=== PATIENT | female | born 1990 | race Caucasian/White ===

== ENCOUNTER → 2017-12-16 10:00 | Outpatient (CLI) | payer OTHER, MEDICAID, SELFPAY ==
[2017-12-16 10:51] LABS: Color, Urine Straw (Yellow); Glucose, Dipstick Normal (Normal); Ketone-Dipstick Negative (Negative); Leukocyte Esterase-Dipstick 25 /ul (Negative); Nitrite-Dipstick Negative (Negative); Occult Blood-Urine Negative /ul (Negative); Protein-Dipstick Negative (Negative); Specific Gravity, Urine 1.015 (1.002-1.030); Urine Bilirubin Dipstick Negative (Negative); Urine Clarity Clear (Clear); Urine Urobilinogen Normal (Normal)
[2017-12-16 10:52] LABS: Absolute Lymphocyte Count 1.59 X10^3/ul (0.83-4.51); Basophil# 0.01 X10^3/uL; Basophil% 0.1 % (0-1); Eosinophil# 0.08 X10^3/uL; Eosinophils% 0.7 % (0-5); Hematocrit 36.1 % (37-47); Hemoglobin 12.1 g/dl (12.0-15.0); Lymphocyte # 1.59 X10^3/ul (4.0); Lymphocyte % 13.9 % (19-41); Mean Corp Hgb Conc 33.5 g/gl (32-36); Mean Corpuscular Volume 89.6 fL (81-99); Mean Platelet Vol. 10.2 fl (6.2-12.0); Monocyte# 0.73 X10^3/uL; Monocyte% 6.4 % (0-10); Neutrophil # 9.01 X10^3/uL (2.7-7.7); Neutrophil % 78.8 % (47-70); Platelet Count 271 K/mm3 (150-450); RBC Distribution Width SD 42.4 fl (35.1-43.9); Red Blood Count 4.03 M/mm3 (4.2-5.4); White Blood Count 11.4 K/mm3 (4.4-11.0)
[2017-12-16 10:55] LABS: POSITIVE COUNT NO; POSITIVE DIFFERENTIAL NO; POSITIVE MORPHOLOGY NO
[2017-12-16 10:57] LABS: COTININE Drug Screen Negative (<200 ng/mL)
[2017-12-16 11:06] LABS: Amphetamine Urine VISTA NEGATIVE (<1000 ng/mL); Barbiturate Urine VISTA NEGATIVE (< 200 ng/mL); Benzodiazepine Urine VISTA NEGATIVE (< 200 ng/mL); Cocaine Urine VISTA NEGATIVE (< 300 ng/mL); Ecstacy Urine VISTA NEGATIVE (< 500 ng/mL); Methadone Urine VISTA NEGATIVE (< 300 ng/mL); PCP Urine VISTA NEGATIVE (< 25 ng/mL); THC Urine VISTA NEGATIVE (< 50 ng/mL); Vista UDS pH Range 6
[2017-12-16 11:14] LABS: Thyroid Stim Hormone (TSH) 1.14 uIU/mL (0.358-3.74)
[2017-12-17 11:23] LABS: HIV - WCH Non-Reactive (Nonreactive); Rubella IgG 233.2 IU/mL
[2017-12-17 12:55] LABS: HEPATITIS B SURFACE AG Negative (Negative); Hep C Antibodies <0.1 s/co ratio (0.0-0.9)
[2017-12-19 04:38] LABS: Prenatal RPR NONREACTIVE (NONREACTIVE)
== END ==
PROVIDERS: Visit Provider Obstetrics & Gynecology
DX: Z34.81 Encounter for supervision of other normal pregnancy, first trimester (principal); Z3A.00 Weeks of gestation of pregnancy not specified
CPT/HCPCS: 36415; 80307; 81002; 84443; 85025; 86703; 86762; 86803; 87340

== ENCOUNTER → 2018-04-14 09:13 | Outpatient (CLI) | payer MEDICAID, SELFPAY ==
[2018-04-14 10:55] LABS: Hematocrit 30.9 % (37-47); Hemoglobin 9.9 g/dl (12.0-15.0); Mean Corpuscular Hgb 28.9 pg (27.0-32.0); Mean Corpuscular Volume 90.1 fL (81-99); Mean Platelet Vol. 10.1 fl (6.2-12.0); Platelet Count 273 K/mm3 (150-450); RBC Distribution Width CV 13.3 % (11.6-14.6); RBC Distribution Width SD 42.7 fl (35.1-43.9); Red Blood Count 3.43 M/mm3 (4.2-5.4); White Blood Count 8.8 K/mm3 (4.4-11.0)
[2018-04-14 10:56] LABS: Scan Indicated on CBC? Y/N NO
[2018-04-14 11:01] LABS: Glucose Challenge Gest 1H 50g 151 mg/dL (70-140)
== END ==
PROVIDERS: Visit Provider Obstetrics & Gynecology
DX: Z34.82 Encounter for supervision of other normal pregnancy, second trimester (principal)
CPT/HCPCS: 36415; 82950; 85027

== ENCOUNTER → 2018-04-24 06:45 | Outpatient (CLI) | payer MEDICAID, SELFPAY ==
[2018-04-24 08:10] LABS: Glucose GTT-Gestation. Fasting 70 mg/dL (<105)
[2018-04-24 09:29] LABS: Glucose GTT-Gestational 1 Hr 180 mg/dL (<190)
[2018-04-24 09:45] LABS: Glucose GTT-Gestational 2 Hr 128 mg/dL (<165)
[2018-04-24 10:52] LABS: Glucose GTT-Gestational 3 Hr 132 L (<145)
== END ==
PROVIDERS: Family Provider Family Medicine; PCP Family Medicine; Visit Provider Obstetrics & Gynecology
DX: O24.912 Unspecified diabetes mellitus in pregnancy, second trimester (principal); Z3A.00 Weeks of gestation of pregnancy not specified
CPT/HCPCS: 36415; 82951; 82952

== ENCOUNTER → 2018-05-14 14:46 | Outpatient (CLI) | payer MEDICAID, SELFPAY ==
--- NOTE | 2018-05-14 14:50 | VDLE_ITS ---
Reason For Study: LEG PAIN RIGHT LEFT GSV is normal. GSV is normal. CFV is compressible, spontaneous, phasic, CFV is compressible, spontaneous, phasic, competent and demonstrates normal competent, and demonstrates normal augmentation. augmentation. FV is compressible, spontaneous, phasic, FV is compressible, spontaneous, phasic, competent and demonstrates normal competent and demonstrates normal augmentation. augmentation. POP V is compressible, spontaneous, phasic, POP V is compressible, spontaneous, phasic, competent and demonstrates normal competent and demonstrates normal augmentation. augmentation. T/P Trunk is compressible. T/P Trunk is compressible. PTV is compressible. PTV is compressible. RT PerV is compressible. LT PerV is compressible. Procedure Exam performed in department. A preliminary report was called and/or faxed to Dr. Cabrera. Interpretation Summary Deep veins of the lower extremities are bilaterally patent and compressible segmentally. There is no evidence of deep vein thrombosis on either side. Valvular competence appears intact within the proximal deep venous systems bilaterally. The greater saphenous veins appear bilaterally patent and compressible segmentally. Ordering Physician: Marciano Cabrera Referring Physician: Marciano Cabrera Performed By: Cheryle Cook RVT
== END ==
PROVIDERS: Family Provider Family Medicine; PCP Family Medicine; Visit Provider Obstetrics & Gynecology
DX: O26.899 Other specified pregnancy related conditions, unspecified trimester (principal); M79.606 Pain in leg, unspecified
CPT/HCPCS: 93970

== ENCOUNTER 2018-05-31 21:04 | Outpatient (CLI) | payer MEDICAID, SELFPAY ==
[2018-05-31 22:18] LABS: Color, Urine Yellow (Yellow); Glucose, Dipstick Normal (Normal); Ketone-Dipstick Negative (Negative); Leukocyte Esterase-Dipstick 500 /ul (Negative); Mucous, Urine 0 SEEN /hpf (<or=2+); Nitrite-Dipstick Negative (Negative); Occult Blood-Urine Negative /ul (Negative); Protein-Dipstick 15 mg/dl (Negative); Red Blood Cells-Urine 0 SEEN /hpf (0-5); Urine Bilirubin Dipstick Negative (Negative); Urine Clarity Sl. Cloudy (Clear); Urine Urobilinogen 1 mg/dl (Normal)
[2018-05-31] MEDS: 0.9% Normal Saline 1,000 ML 999 ML IV (22:25)
[2018-05-31 22:27] LABS: Bacteria 3+ /hpf (None Seen); Squamous Epithelial Cells - UA 10-25 SEEN /hpf (5-10); White Blood Cells 10-25 SEEN /hpf (0-5)
[2018-05-31] MEDS: Terbutaline 1 MG/ML Vial 0.25 MG SC (22:50)
[2018-05-31 22:55] VITALS: BMI 29.0
[2018-06-01] MEDS: Terbutaline 1 MG/ML Vial 0.25 MG SC (00:45)
--- NOTE | 2018-06-01 07:24 | OB.TRI.NOTE ---
- Problem List (1) 34 weeks gestation of Status: Acute (2) labor in third trimester Status: Acute Qualifiers: labor delivery status: without delivery Qualified Code(s): O60.03 - labor without delivery, third trimester History of Present Illness Date of Service: 06/01/18 Was patient seen by the physician?: Yes Reason For Visit: R/O LABOR Date of Service: 06/01/18 Final KELLY: 07/09/18 Final KELLY Source: US <20 weeks Gestational age: 34 Weeks and 4 Days History of Present Illness: 28yo [id number] 34 4/7wga with c/o contractions. No leaking of fluid or vaginal bleeding. Fetus active. Denies fever, chills, dysuria, back pain, hematuria. Allergies amoxicillin trihydrate [From Augmentin] Allergy (Verified 05/31/18 22:53) Rash clarithromycin [From Biaxin] Allergy (Verified 05/31/18 22:53) Rash potassium clavulanate [From Augmentin] Allergy (Verified 05/31/18 22:53) Rash - Pertinent Past Medical History Medical History: Past Medical History (Last Updated 06/01/18 @ 08:27 by More Lynn MD) Depression Physical Exam Vitals: avss General: Alert, Oriented x3, Cooperative, No apparent distress HEENT: Atraumatic, Normocephalic Lungs: Normal air movement Abdomen: Soft, Non Tender, Non-Distended, Gravid Neurological: Neuro grossly intact 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 -dfdx contractions, cystitis -s/p terbutaline x 2 with continued contractions -RN exam closed -->01/18/-5 per my exam -U/A suggests UTI vs. contamination - will treat empirically as this may be the cause of her contractions. Rx Macrobid. -Will give betamethasone for FLM -Plan repeat exam approximately 12 noon, if unchanged then will d/c home.
[2018-06-01] MEDS: Nitrofurantoin Macrocrystals 100 MG Capsule PO (07:44)
[2018-06-01] MEDS: Betamethasone/Betamethasone 30 MG/5 ML Vial 12 MG IM (07:44)
--- NOTE | 2018-06-01 08:32 | OB.TRI.HP_ITS ---
- Problem List (1) 34 weeks gestation of Status: Acute (2) labor in third trimester Status: Acute Qualifiers: labor delivery status: without delivery Qualified Code(s): O60.03 - labor without delivery, third trimester History of Present Illness Date of Service: 06/01/18 Was patient seen by the physician?: Yes Reason For Visit: R/O LABOR Date of Service: 06/01/18 Final KELLY: 07/09/18 Final KELLY Source: US <20 weeks Gestational age: 34 Weeks and 4 Days History of Present Illness: 28yo [id number] 34 4/7wga with c/o contractions. No leaking of fluid or vaginal bleeding. Fetus active. Denies fever, chills, dysuria, back pain, hematuria. Allergies amoxicillin trihydrate [From Augmentin] Allergy (Verified 05/31/18 22:53) Rash clarithromycin [From Biaxin] Allergy (Verified 05/31/18 22:53) Rash potassium clavulanate [From Augmentin] Allergy (Verified 05/31/18 22:53) Rash - Pertinent Past Medical History Medical History: Past Medical History (Last Updated 06/01/18 @ 08:27 by More Lynn MD) Depression Physical Exam Vitals: avss General: Alert, Oriented x3, Cooperative, No apparent distress HEENT: Atraumatic, Normocephalic Lungs: Normal air movement Abdomen: Soft, Non Tender, Non-Distended, Gravid Neurological: Neuro grossly intact 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 -dfdx contractions, cystitis -s/p terbutaline x 2 with continued contractions -RN exam closed -->01/18/-5 per my exam -U/A suggests UTI vs. contamination - will treat empirically as this may be the cause of her contractions. Rx Macrobid. -Will give betamethasone for FLM -Plan repeat exam approximately 12 noon, if unchanged then will d/c home.
[2018-06-01] MEDS: Mag Hydrox/Al Hydrox/Simeth 30 ML UDC PO (13:08)
--- NOTE | 2018-06-01 14:00 | PCM.PN.BLA ---
Progress Note PROGRESS NOTE Repeat exam by RN unchanged from prior and FHR Cat I. Will d/c home. Antibiotics for possible UTI e-prescribed. Return for betamethasone dose #2 tomorrow.
== END 2018-06-01 13:30 | disposition home or self-care (01) ==
LOC: WPOUT 21:50 → WP 21:50
PROVIDERS: Family Provider Family Medicine; PCP Family Medicine; Visit Provider Obstetrics & Gynecology
DX: O60.03 Preterm labor without delivery, third trimester (principal); O99.343 Other mental disorders complicating pregnancy, third trimester; F32.9 Major depressive disorder, single episode, unspecified; Z79.899 Other long term (current) drug therapy; Z3A.34 34 weeks gestation of pregnancy
CPT/HCPCS: 59025; 59050; 81001; 87086; 87088; 96372; 99218; J7030; A4216; G0378; J0702

== ENCOUNTER 2018-06-02 07:38 | Outpatient (CLI) | payer MEDICAID, SELFPAY ==
[2018-06-02 08:07] VITALS: BMI 29.4
[2018-06-02] MEDS: Betamethasone/Betamethasone 30 MG/5 ML Vial 12 MG IM (08:07)
--- NOTE | 2018-06-03 08:51 | OB.TRI.PN ---
Progress Notes Date of Service: 06/02/18 Progress Note: 28yo at 34 5/7wga presents for nurse visit for second dose of betamethasone for recent labor. Last dose given morning of 06/01/18.
== END 2018-06-02 08:13 | disposition home or self-care (01) ==
LOC: WPOUT 07:43 → WP 07:44
PROVIDERS: Family Provider Family Medicine; PCP Family Medicine; Visit Provider Obstetrics & Gynecology
DX: O60.03 Preterm labor without delivery, third trimester (principal); Z3A.34 34 weeks gestation of pregnancy
CPT/HCPCS: 96372; 99218; G0378; J0702

== ENCOUNTER 2018-06-05 12:05 | Outpatient (CLI) | payer MEDICAID, SELFPAY ==
[2018-06-05 12:33] VITALS: BMI 29.4
--- NOTE | 2018-06-06 06:41 | OB.TRI.NOTE ---
History of Present Illness Date of Service: 06/05/18 Was patient seen by the physician?: No Reason For Visit: R/O LABOR Date of Service: 06/05/18 Final KELLY: 07/09/18 Final KELLY Source: US <20 weeks Gestational age: 35 Weeks and 1 Days Allergies amoxicillin trihydrate [From Augmentin] Allergy (Verified 05/31/18 22:53) Rash clarithromycin [From Biaxin] Allergy (Verified 05/31/18 22:53) Rash potassium clavulanate [From Augmentin] Allergy (Verified 05/31/18 22:53) Rash - Pertinent Past Medical History Medical History: Past Medical History (Last Updated 06/01/18 @ 08:27 by More Lynn MD) Depression Physical Exam Cervix Dilation (cm): 2 Station: -2 Effacement (%): 60 NST - FHR Rate Baby A Baseline: 120-130s with accels to 160-170s Variability:: Moderate Accelerations:: 15 x 15 Decelerations:: None, Early NST Reactive:: Yes, Appropriate for gestational age FHR Category:: Category I Uterine Activity:: irregular UCs Impression/Plan 35 wk False labor Reactive NST Home. Keep next appt in ofc as planned.
== END 2018-06-05 14:00 | disposition home or self-care (01) ==
LOC: WPOUT 12:11 → WP 12:12
PROVIDERS: Family Provider Family Medicine; PCP Family Medicine; Visit Provider Obstetrics & Gynecology
DX: O47.03 False labor before 37 completed weeks of gestation, third trimester (principal); O99.343 Other mental disorders complicating pregnancy, third trimester; F32.9 Major depressive disorder, single episode, unspecified; Z79.899 Other long term (current) drug therapy; Z3A.35 35 weeks gestation of pregnancy
CPT/HCPCS: 59025; 59050; 99218; G0378

== ENCOUNTER → 2018-06-10 11:24 | Outpatient (CLI) | payer MEDICAID, SELFPAY ==
[2018-06-10 17:14] LABS: Group B Strep DNA By PCR Negative (Negative); Internal Control PASS; Probe Check PASS; Specimen Processing Control PASS
== END ==
PROVIDERS: Visit Provider Obstetrics & Gynecology
DX: Z36.85 Encounter for antenatal screening for Streptococcus B (principal)
CPT/HCPCS: 87081; 87653

== ENCOUNTER 2018-06-18 01:25 | Outpatient (CLI) | payer MEDICAID, SELFPAY ==
[2018-06-18 02:35] VITALS: BMI 30.1
[2018-06-18] MEDS: Lactated Ringers 1,000 ML 500 ML IV (05:00)
--- NOTE | 2018-06-18 07:02 | OB.TRI.NOTE ---
History of Present Illness Date of Service: 06/18/18 Was patient seen by the physician?: Yes Reason For Visit: R/O LABOR Date of Service: 06/18/18 Final KELLY: 07/09/18 Final KELLY Source: US <20 weeks Gestational age: 37 Weeks and 0 Days Allergies amoxicillin trihydrate [From Augmentin] Allergy (Verified 05/31/18 22:53) Rash clarithromycin [From Biaxin] Allergy (Verified 05/31/18 22:53) Rash potassium clavulanate [From Augmentin] Allergy (Verified 05/31/18 22:53) Rash - Pertinent Past Medical History Medical History: Past Medical History (Last Updated 06/01/18 @ 08:27 by More Lynn MD) Depression Review of Systems Constitutional: Denies: Anorexia, Chills, Fever Respiratory: Denies: Shortness of Breath Gastrointestinal: Denies: Abdominal Pain, Diarrhea, Nausea, Vomiting Genitourinary: Denies: Dysuria Gynecological: Denies: Vaginal bleeding Physical Exam General: Alert, Oriented x3, Cooperative, No apparent distress Cardiovascular: Regular rate, Regular Rhythm Lungs: Clear to auscultation, Normal air movement Abdomen: Soft, Non Tender, Non-Distended, Gravid, Appropriate for Gestational Age, - - some mild palpable contractions Extremities:: No edema Neurological: Neuro grossly intact Estimated gestational size: Appropriate for gestational size Presentation: Cephalic Cervix Dilation (cm): 3 Station: -3 Effacement (%): 50 NST - FHR Rate Baby A Variability:: Moderate Accelerations:: 15 x 15 NST Reactive:: Yes, Appropriate for gestational age FHR Category:: Category I Uterine Activity:: irregular not strongly Impression/Plan Some irregular contractions overnight after intercourse. No change in cervical exam today or over the past 3 weeks. Not in active labor. Observed over 4+ hours.
== END 2018-06-18 07:00 | disposition home or self-care (01) ==
LOC: WPOUT 02:02 → WP 06-19 09:29
PROVIDERS: Family Provider Family Medicine; PCP Family Medicine; Visit Provider Obstetrics & Gynecology
DX: O62.8 Other abnormalities of forces of labor (principal); O99.343 Other mental disorders complicating pregnancy, third trimester; F32.9 Major depressive disorder, single episode, unspecified; Z3A.37 37 weeks gestation of pregnancy
CPT/HCPCS: 96360; 96361; 59025; 59050; 99218; G0378

== ENCOUNTER → 2018-06-23 14:37 | Outpatient (CLI) | payer MEDICAID, SELFPAY ==
[2018-06-23 15:15] LABS: ROM Internal Control Test YES-OK TO RESULT pt. (Internal QC); ROM Patient Test Negative (Negative)
== END ==
PROVIDERS: Visit Provider Obstetrics & Gynecology
DX: Z34.83 Encounter for supervision of other normal pregnancy, third trimester (principal)
CPT/HCPCS: 84112

== ENCOUNTER 2018-07-01 19:00 | Outpatient (CLI) | payer MEDICAID, SELFPAY ==
[2018-07-01 20:46] VITALS: BMI 29.0
--- NOTE | 2018-07-02 07:12 | OB.TRI.NOTE ---
History of Present Illness Date of Service: 07/01/18 Was patient seen by the physician?: Yes Reason For Visit: R/O LABOR Date of Service: 07/01/18 Final KELLY: 07/08/18 Final KELLY Source: US <20 weeks Gestational age: 39 Weeks and 1 Days History of Present Illness: Complaints of regular uterine contractions, denies signs of SROM Allergies amoxicillin trihydrate [From Augmentin] Allergy (Verified 07/01/18 20:47) Rash clarithromycin [From Biaxin] Allergy (Verified 07/01/18 20:47) Rash potassium clavulanate [From Augmentin] Allergy (Verified 07/01/18 20:47) Rash - Pertinent Past Medical History Medical History: Past Medical History (Last Updated 06/01/18 @ 08:27 by More Lynn MD) Depression Review of Systems Constitutional: Denies: Fever Cardiovascular: Denies: Chest Pain, Chest Pressure, Chest Tightness, Edema Respiratory: Denies: Cough, Shortness of Breath Physical Exam General: Alert, Oriented x3, Cooperative, No apparent distress Cardiovascular: Regular rate, Regular Rhythm Lungs: Clear to auscultation, Normal air movement Abdomen: Soft, Non Tender, Non-Distended, Gravid, Appropriate for Gestational Age Extremities:: No edema Neurological: Neuro grossly intact 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 Reassuring heart rate tracing. No signs of SROM.
--- NOTE | 2018-07-02 07:15 | OB.TRI.HP_ITS ---
History of Present Illness Date of Service: 07/01/18 Was patient seen by the physician?: Yes Reason For Visit: R/O LABOR Date of Service: 07/01/18 Final KELLY: 07/08/18 Final KELLY Source: US <20 weeks Gestational age: 39 Weeks and 1 Days History of Present Illness: Complaints of regular uterine contractions, denies signs of SROM Allergies amoxicillin trihydrate [From Augmentin] Allergy (Verified 07/01/18 20:47) Rash clarithromycin [From Biaxin] Allergy (Verified 07/01/18 20:47) Rash potassium clavulanate [From Augmentin] Allergy (Verified 07/01/18 20:47) Rash - Pertinent Past Medical History Medical History: Past Medical History (Last Updated 06/01/18 @ 08:27 by More Lynn MD) Depression Review of Systems Constitutional: Denies: Fever Cardiovascular: Denies: Chest Pain, Chest Pressure, Chest Tightness, Edema Respiratory: Denies: Cough, Shortness of Breath Physical Exam General: Alert, Oriented x3, Cooperative, No apparent distress Cardiovascular: Regular rate, Regular Rhythm Lungs: Clear to auscultation, Normal air movement Abdomen: Soft, Non Tender, Non-Distended, Gravid, Appropriate for Gestational Age Extremities:: No edema Neurological: Neuro grossly intact 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 Reassuring heart rate tracing. No signs of SROM.
== END 2018-07-02 | disposition home or self-care (01) ==
LOC: WPOUT 20:27 → WP 20:28
PROVIDERS: Family Provider Family Medicine; PCP Family Medicine; Visit Provider Obstetrics & Gynecology
DX: O99.343 Other mental disorders complicating pregnancy, third trimester (principal); F32.9 Major depressive disorder, single episode, unspecified; Z3A.39 39 weeks gestation of pregnancy
CPT/HCPCS: 59025; 59050; 99218; G0378

== ENCOUNTER 2018-07-07 06:45 | Inpatient (IN) | payer MEDICAID, SELFPAY ==
[2018-07-07] MEDS: Lactated Ringers 1,000 ML 50 ML IV ×2 (07:45→09:58)
[2018-07-07 08:09] VITALS: BMI 29.6
[2018-07-07] MEDS: Oxytocin 30 units/NS 500 ml 30 UNITS/500 ML IV.SOLN IV (08:10)
[2018-07-07 08:13] LABS: Hematocrit 28.8 % (37-47); Hemoglobin 8.7 g/dl (12.0-15.0); Mean Corp Hgb Conc 30.2 g/gl (32-36); Mean Corpuscular Volume 76.2 fL (81-99); Mean Platelet Vol. 9.8 fl (6.2-12.0); Platelet Count 265 K/mm3 (150-450); RBC Distribution Width CV 15.5 % (11.6-14.6); RBC Distribution Width SD 43.3 fl (35.1-43.9); Red Blood Count 3.78 M/mm3 (4.2-5.4); Scan Indicated on CBC? Y/N NO; White Blood Count 11.9 K/mm3 (4.4-11.0)
[2018-07-07] MEDS: fentaNYL-bupivacaine (epidural) 100 ML BAG EPIDURAL (09:55)
[2018-07-07] MEDS: Oxytocin 30 units/NS 500 ml 30 UNITS/500 ML IV.SOLN 334 UNITS IV (13:22)
--- NOTE | 2018-07-07 13:32 | PCM.OB.VAG ---
Vaginal Delivery Maternal Presentation: Elective Induction 39w6d ega admitted for induction of labor. Pitocin induction resulted in uncomplicated vaginal delivery. Placenta delivered intact. Intact vagina, cervix, perineum. Method of Induction: Pitocin Amniotic Membrane Rupture Type: Artificial Rupture of Membrane time: 757 Amniotic Fluid Description: Clear Final KELLY: 07/08/18 Final KELLY Source: US <20 weeks Gestational age: 39 Weeks and 6 Days Date of Procedure: 07/07/18 Pre-Operative Diagnosis: labor Post-Operative Diagnosis: same Surgery/ Procedure Performed: Spontaneous Vaginal Delivery Anesthesiologist: Rohan Alvarez Type of Anesthesia: Epidural Description of Procedure: see above Presentation: Vertex Placental Delivery Description: Spontaneous Placenta Disposition: [facility] Percentage of Placenta Abruption: 0 Cord Vessel Description: 3 Vessels Nuchal Cord Compression: Without compression Cord Entanglement: None Drain: Nova to straight drain Estimated Blood Loss: 200cc Infant A gender: Male (1 minute): 8 (5 minute): 8 Episiotomy Description: None Laceration: None Medications given after delivery: IV Pitocin Complications: None
[2018-07-07] MEDS: Oxytocin 30 units/NS 500 ml 30 UNITS/500 ML IV.SOLN 167 UNITS IV (13:54)
[2018-07-07 17:30] VITALS: BP 106/55; PULSE 96; RESP 16; TEMP 36.8
[2018-07-07] MEDS: Ibuprofen 600 MG Tablet PO (19:45)
[2018-07-07 19:52] VITALS: BP 98/52; PULSE 92; RESP 16; TEMP 37.1; O2SAT 97
[2018-07-08] VITALS: BP 104/52; PULSE 82; RESP 16; TEMP 37.1; O2SAT 98
[2018-07-08 04:20] VITALS: BP 105/51; PULSE 74; RESP 16; TEMP 36.7; O2SAT 97
[2018-07-08 06:07] LABS: Hematocrit 27.4 % (37-47); Hemoglobin 8.3 g/dl (12.0-15.0); Mean Corp Hgb Conc 30.3 g/gl (32-36); Mean Corpuscular Hgb 23.5 pg (27.0-32.0); Mean Corpuscular Volume 77.6 fL (81-99); Mean Platelet Vol. 9.5 fl (6.2-12.0); Platelet Count 243 K/mm3 (150-450); RBC Distribution Width CV 15.4 % (11.6-14.6); RBC Distribution Width SD 41.8 fl (35.1-43.9); Red Blood Count 3.53 M/mm3 (4.2-5.4); White Blood Count 15.9 K/mm3 (4.4-11.0)
[2018-07-08 06:13] LABS: Scan Indicated on CBC? Y/N NO
--- NOTE | 2018-07-08 08:06 | PCM.DCVAG ---
Discharge Diet: No Restrictions Discharge Activity: Return to Normal Activity, May Drive, May Shower Return to work on:: 09/07/18 May shower in (days): 0 May resume sexual activity in: 4-6 weeks Call your doctor if your incision/area has: Sudden Increased Bleeding, Increased Pain/ Swelling, Foul Smelling Discharge Call your doctor if you observe: Fever of 101 or Higher, Inability to urinate, Inability to have a bowel movement, Using more than one pad per hour, Shortness of breath, Chest pain, Calf discomfort, Uncontrolled pain Additional Instructions: If you experience any of the following, contact your healthcare provider. Bleeding that soaks a pad every hour for 2 hours Fever 100.4 or higher Unrelieved incision or abdominal pain Swelling, redness, discharge or bleeding from your incision or episiotomy site Your incision begins to separate Problems urinating (including inability to urinate or burning while urinating). Visual changes Severe headache Flu-like symptoms Pain or redness in one of both of your breasts Pain, warmth, tenderness or swelling in your legs, especially the calf area Frequent nausea and vomiting Symptoms of depression or anxiety If you experience any of the following, call 911 or go to the nearest Emergency Room. Chest pain Problems breathing Seizure activity Partial or complete paralysis of a body part, slurred speech, weakness or drooping of the face, or a sudden inability to walk or hold your balance Allergies/Adverse Reactions: Allergies amoxicillin trihydrate [From Augmentin] Allergy (Verified 07/01/18 20:47) Rash clarithromycin [From Biaxin] Allergy (Verified 07/01/18 20:47) Rash potassium clavulanate [From Augmentin] Allergy (Verified 07/01/18 20:47) Rash Medications to take at Discharge Vilazodone Hydrochloride [Viibryd] 40 mg PO DAILY 05/13/16 Ferrous Gluconate 325 mg PO DAILY 07/07/18 Vits [Prenatabs FA ] 1 tab PO DAILY 07/07/18 Ibuprofen 600 mg PO Q6H PRN PRN #30 tab 07/08/18 The following prescriptions were given: Ibuprofen 600 mg PO Q6H PRN PRN #30 tab PRN Reason: pain or cramping Please Follow Up With: Marciano Cabrera MD When: 6 weeks Primary Care Physician: Elan Quiñonez MD [Primary Care Provider] - Test Results: Test results from this visit will be discussed in further detail at your follow-up appointment, if applicable. Proposed Discharge Date: 07/08/18
--- NOTE | 2018-07-08 08:07 | PCM.PN.OB ---
Subjective: No complaints. Bleeding light. Bottle feeding. Objective: Afeb VSS Hgb stable. - Physical Exam General: Alert, Oriented x3, Cooperative, No apparent distress Lungs: Clear to auscultation, Normal air movement Cardiovascular: Regular rate, Regular Rhythm Abdomen: Soft, Non Tender, Non-Distended, - - Fundus firm nontender Extremities: No edema Skin: No rashes Neurological: Neuro grossly intact Psych/Mental Status: Normal Affect Comment: Lochia light Vital Signs Temp Pulse Resp BP Pulse Ox 98.0 F 74 16 105/51 L 97 07/08/18 04:20 07/08/18 04:20 07/08/18 04:20 07/08/18 04:20 07/08/18 04:20 Oxygen Delivery Method Room Air Weight: 162 lb 0.636 oz Body Mass Index (BMI) 29.6 Intake and Output for Last 24 Hours 07/06/18 07/07/18 07/08/18 23:59 23:59 23:59 Intake Total 2347 / 2347 Output Total 750 / 750 Balance 1597 / 1597 Laboratory Tests Past 24 Hrs 07/07/18 07/07/18 07/08/18 07:45 07:45 06:00 WBC 11.9 H 15.9 H RBC 3.78 L 3.53 L Hgb 8.7 L 8.3 L Hct 28.8 L 27.4 L MCV 76.2 L 77.6 L MCH 23.0 L 23.5 L MCHC 30.2 L 30.3 L RDW 15.5 H 15.4 H RDW Differential 43.3 41.8 Plt Count 265 243 MPV 9.8 9.5 Blood Type A POSITIVE Antibody Screen NEGATIVE Medical Necessity - Tobacco Use Smoking Status: Never smoker Assessment/Plan All Active Problems (Last Updated 06/01/18 @ 08:27 by More Lynn MD) 34 weeks gestation of (Acute) labor in third trimester (Acute) Doing well on PP day#1. May consider discharge today. Home going instructions and warnings given.
[2018-07-08 08:36] VITALS: BP 117/68; PULSE 80; RESP 16; TEMP 36.6; O2SAT 100
[2018-07-08 11:53] VITALS: BP 110/72; PULSE 96; RESP 16; TEMP 36.7; O2SAT 98
[2018-07-08 18:00] VITALS: BP 110/75; PULSE 90; RESP 16; TEMP 36.6; O2SAT 98
[2018-07-08 19:50] VITALS: BP 118/58; PULSE 89; RESP 18; TEMP 36.8
[2018-07-09 04:00] VITALS: BP 109/63; PULSE 77; RESP 18; TEMP 36.8
[2018-07-09 08:00] VITALS: BP 111/64; PULSE 87; RESP 16; TEMP 36.8; O2SAT 96
--- NOTE | 2018-07-10 08:02 | PCM.DC.SUM ---
Discharge Date and Diagnosis Date of Admission: 07/07/18 Date of Discharge: 07/09/18 - Primary Discharge Diagnosis S/P Hospital Course and Treatment Consultations 07/07/18 07:04 Consult: Anesthesia Routine Comment: Reason For Exam: Operations: None Procedures: - - Pitocin induction of labor, epidural, Summary of Care Provided: The patient is a 28 year old F [admitted at 39w6d [facility] for elective induction of labor. She underwent pitocin induction of labor with resultant uncomplicated vaginal delivery of a live . Post course was unremarkable. She was discharged home on PP day#2.] Discharge Diet: No Restrictions Discharge Activity: Return to Normal Activity, May Drive, May Shower Return to work on:: 09/07/18 May shower in (days): 0 May resume sexual activity in: 4-6 weeks Call your doctor if your incision/area has: Sudden Increased Bleeding, Increased Pain/ Swelling, Foul Smelling Discharge Call your doctor if you observe: Fever of 101 or Higher, Inability to urinate, Inability to have a bowel movement, Using more than one pad per hour, Shortness of breath, Chest pain, Calf discomfort, Uncontrolled pain Home Medications: Medications to take at Discharge Vilazodone Hydrochloride [Viibryd] 40 mg PO DAILY 05/13/16 Ferrous Gluconate 325 mg PO DAILY 07/07/18 Vits [Prenatabs FA ] 1 tab PO DAILY 07/07/18 Ibuprofen 600 mg PO Q6H PRN PRN #30 tab 07/08/18 Following Prescrptions Were Given to Patient: Ibuprofen 600 mg PO Q6H PRN PRN #30 tab PRN Reason: pain or cramping Primary Care Physician: Elan Quiñonez MD [Primary Care Provider] - Please Follow Up With: Marciano Cabrera MD When: Call office to make 6-week check-up Disposition: Home Minutes spent on discharge:: 15 Patient Condition:: Good Medical Necessity - Tobacco Use Smoking Status: Never smoker Meaningful Use Info Meaningful Use Diagnoses (Choose all that apply): None applicable
--- NOTE | 2018-07-10 08:05 | PCM.PN.OB ---
Subjective: Note for 07/09/18 as [employer] down. Patient without complaints, bottle feeding, bleeding light. Objective: Afeb VSS - Physical Exam General: Alert, Oriented x3, Cooperative, No apparent distress Lungs: Clear to auscultation, Normal air movement Cardiovascular: Regular rate, Regular Rhythm Abdomen: Soft, Non Tender, Non-Distended Extremities: No edema Skin: No rashes Neurological: Neuro grossly intact Psych/Mental Status: Normal Affect Comment: Lochia light Vital Signs Temp Pulse Resp BP Pulse Ox 98.2 F 87 16 111/64 96 07/09/18 08:00 07/09/18 08:00 07/09/18 08:00 07/09/18 08:00 07/09/18 08:00 Oxygen Delivery Method Room Air Weight: 162 lb 0.636 oz Body Mass Index (BMI) 29.6 Medical Necessity - Tobacco Use Smoking Status: Never smoker Assessment/Plan All Active Problems (Last Updated 06/01/18 @ 08:27 by More Lynn MD) 34 weeks gestation of (Acute) labor in third trimester (Acute) Doing well on PP day#2. Discharge delayed to 07/09 as patient didn't make pediatrics appt for baby on 07/08. Discharged home. Home going instructions and warnings given.
== END 2018-07-09 10:30 | disposition home or self-care (01) | DRG 373 ==
PROVIDERS: Admitting Provider Obstetrics & Gynecology; Family Provider Family Medicine; PCP Family Medicine; Visit Provider Obstetrics & Gynecology
DX: O99.344 Other mental disorders complicating childbirth (principal); F32.9 Major depressive disorder, single episode, unspecified; F41.8 Other specified anxiety disorders; Z3A.39 39 weeks gestation of pregnancy; Z37.0 Single live birth
CPT/HCPCS: 59025; 59050; 85027; 86850; 86900; 99218; J7120; G0378

== ENCOUNTER 2018-09-18 10:14 | Day surgery (SDC) | payer MEDICAID, SELFPAY ==
[2018-09-14 11:12] LABS: Hematocrit 34.2 % (37-47); Hemoglobin 10.3 g/dl (12.0-15.0); Mean Corp Hgb Conc 30.1 g/gl (32-36); Mean Corpuscular Hgb 24.4 pg (27.0-32.0); Mean Platelet Vol. 9.9 fl (6.2-12.0); Platelet Count 346 K/mm3 (150-450); RBC Distribution Width CV 20.7 % (11.6-14.6); RBC Distribution Width SD 60.2 fl (35.1-43.9); Red Blood Count 4.22 M/mm3 (4.2-5.4); White Blood Count 7.6 K/mm3 (4.4-11.0)
[2018-09-14 11:14] LABS: Scan Indicated on CBC? Y/N YES- FLAGS NOTED
[2018-09-14 11:28] LABS: International Normalized Ratio 0.9; Partial Thromboplast Time 29.4 Seconds (24.1-36.2); Prothrombin Time (Protime)PT. 12.5 SECONDS (11.7-14.9)
[2018-09-14 11:31] LABS: Pregnancy, Serum, hCG Quali. NEGATIVE Negative (0-9 Nonpreg)
--- OUTSIDE RECORDS SUMMARY | 2018-09-17 09:51 | XMS RPT_ITS ---
:1990 Author Organization [place] Support Name Relationship Address Phone PEBBLE SEMINOLE Unavailable [address] + [place] [address] SAJAN NEFF Unavailable [address] + [place] [address] PEBBLE SEMINOLE [address] + [place] [address] SAJAN NEFF Unavailable [address] + [place] [address] RHODA FRANCES Unavailable Unavailable + RHODA FRANCES Unavailable Unavailable + GRICEL IRAHETA Unavailable [address] + [place] [address] PEBBLE SEMINOLE Un[address] + [place] [address] SAJAN NEFF Unavailable [address] + [place] [address] PEBBLE SEMINOLE Un[address] + [place] [address] SAJAN NEFF Unavailable [address] + [place] [address] PEBBLE SEMINOLE Unavailable [address] + [place] [address] SAJAN NEFF Unavailable [address] + [place] [address] PEBBLE SEMINOLE Un[address] + [place] [address] SAJAN NEFF Unavailable [address] + [place] [address] PEBBLE SEMINOLE Unavailable [address] + [place] [address] SAJAN NEFF Unavailable [address] + [place] [address] PEBBLE SEMINOLE Unavailable [address] + [place] [address] SAJAN NEFF Unavailable [address] + [place] [address] PEBBLE SEMINOLE Unavailable [address] + [place] [address] SAJAN NEFF Unavailable [address] + [place] [address] PEBBLE SEMINOLE Unavailable [address] + [place] [address] SAJAN NEFF Unavailable [address] + [place] [address] PEBBLE SEMINOLE Unavailable [address] + [place] [address] SAJAN NFEF Unavailable [address] + [place] [address] PEBBLE SEMINOLE Unavailable [address] + [place] [address] SAJAN NEFF Unavailable [address] + [place] [address] PEBBLE SEMINOLE Unavailable . +. [place] [address] SAJAN NEFF Unavailable [address] + [place] [address] PEBBLE SEMINOLE Unavailable . +. [place] [address] SAJAN NEFF Unavailable [address] + [place] [address] PEBBLE SEMINOLE Un[address] + [place] [address] SAJAN NEFF Unavailable [address] + [place] [address] RHODA FRANCES Unavailable Unavailable + RHODA FRANCES Unavailable Unavailable Unavailable Care Team Providers Name Role Phone UNKNOWN, PROVIDER Attending Unavailable Seals, Sajan Attending Unavailable Seals, Sajan Referring Unavailable Seals, Sajan Attending Unavailable Seals, Sajan Attending Unavailable Seals, Sajan Attending Unavailable Seals, Sajan Referring Unavailable [facility], [facility] [place] Unavailable Seals, Sajan Attending Unavailable Seals, Sajan Referring Unavailable Ranney, [facility] [place] Primary [facility] Unavailable WeissRoJordin, More Attending Unavailable Ranney, [facility]er Primary Care Unavailable Seals, Sajan Attending Unavailable Seals, Sajan Referring Unavailable Ranney, [facility] [place] Primary [facility] Unavailable Benekos, Mira Attending Unavailable Benekos, Mira Referring Unavailable Ranney, [facility]er Primary Care Unavailable Seals, Sajan Admitting Unavailable Seals, Sajan Attending Unavailable Seals, Sajan Referring Unavailable Ranney, Christopher Primary Care Unavailable Seals, Sajan Attending Unavailable Seals, Sajan Attending Unavailable Ranney, Christopher Primary Care Unavailable Seals, Sajan Attending Unavailable Seals, Sajan Attending Unavailable Ranney, [facility]er Primary Care Unavailable Seals, Saajn Attending Unavailable Seals, Sajan Referring Unavailable Ranney, [place] Primary Care Unavailable Seals, Sajan Attending Unavailable Seals, Sajan Referring Unavailable Ranney, [facility]er Primary Care Unavailable WALKER TRIPLETT, MISBAH Nelson Attending Unavailable OLAMIDE AMEZQUITA, [facility] Unavailable NOY TRIPLETT, ARLEN Mobley Attending Unavailable OLAMIDE AMEZQUITA, DR. BOWMAN Primary Care Unavailable PROBLEMS PROBLEMS DATE TYPE CONDITION / CODE ATTENDING STATUS SOURCE 08/19/2018 Admitting Unknown / Unknown Active [facility] Medical diagnosis UNK(Unknown) [facility] Repository 06/23/2018 Unknown Z34.83 - Encounter Sajan Cabrera Active [place] for supervision of Community other normal Hospital , third Repository trimester / Z34.83(ICD-10) 06/10/2018 Unknown Z36.85 - Encounter SealSajan oswald Active [place] for Community screening for Hospital Streptococcus B / Repository Z36.85(ICD-10) 04/24/2018 Unknown O24.912 - SealSajan oswald Active [place] Unspecified Community diabetes mellitus Hospital in , Repository second trimester / O24.912(ICD-10) 04/14/2018 Unknown Z34.82 - Encounter SealSajan oswald Active [place] for supervision of [facility] other normal Hospital , second Repository trimester / Z34.82(ICD-10) 01/07/2018 Unknown Z34.81 - Encounter SealSajan oswald Active [place] for supervision of [facility] other normal Hospital , first Repository trimester / Z34.81(ICD-10) 04/25/2018 Unknown Z12.4 - Encounter Sajan Cabrera Active [place] for screening for Community malignant neoplasm Hospital of cervix / Repository Z12.4(ICD-10) PROCEDURES PROCEDURES No Procedure Records FoundRESULTS RESULTS CBC-COMPLETE BLOOD CNT Collected: 09/14/2018 Status: F Source: [place] NO DIFF 9:50 AM [facility] REPOSITORY TYPE CODE TESTS RESULT OUT OF RANGE REFERENCE UNITS LAB L100.1000 Normal 4.4-11.0 K/mm3 WBC 7.6 LAB L100.1200 Normal 4.2-5.4 M/mm3 RBC 4.22 LAB L100.1300 Low 12.0-15.0 g/dl HGB 10.3 LAB L100.1400 Low 37-47 % HCT 34.2 LAB L100.1500 Normal 81-99 fL MCV 81.0 LAB L100.1600 Low 27.0-32.0 pg MCH 24.4 LAB L100.1700 Low 32-36 g/gl MCHC 30.1 LAB L100.1810 High 11.6-14.6 % RDW 20.7 CV LAB L100.1820 High 35.1-43.9 fl RDW 60.2 SD LAB L100.1900 Normal 150-450 K/mm3 PLT 346 LAB L100.2000 Normal 6.2-12.0 fl MPV 9.9 Performed By: #### L100.0500, L100.4500 #### [facility] [address] [place], [place], [id number] DIFFERENTIAL COMMENT Collected: 09/14/2018 Status: F Source: [place] 9:50 AM [facility] REPOSITORY TYPE CODE TESTS RESULT OUT OF RANGE REFERENCE UNITS LAB L100.4500 Normal SMEAR COMMENT Result Comment: 1+ ANISOCYTOSIS 2+ HYPOCHROMIA Performed By: #### L100.0500, L100.4500 #### [facility] [address] [place], [place], [id number] PROTHROMBIN TIME W/INR Collected: 09/14/2018 Status: F Source: [place] 9:50 AM [facility] REPOSITORY TYPE CODE TESTS RESULT OUT OF RANGE REFERENCE UNITS LAB L300.4150 Normal 11.7-14.9 SECONDS PROTIME 12.5 LAB L300.4200 Normal INR 0.9 Performed By: #### L300.3900, L300.4310 #### [facility] [address] [place], [address] PARTIAL THROMBOPLAST Collected: 09/14/2018 Status: F Source: [place] TIME 9:50 AM [facility] REPOSITORY TYPE CODE TESTS RESULT OUT OF RANGE REFERENCE UNITS LAB L300.4310 Normal 24.1-36.2 Seconds PTT 29.4 Performed By: #### L300.3900, L300.4310 #### [facility] [address] [place], [address] ,SERUM,HCG QUALI. Collected: Status: F Source: [place] 09/14/2018 9:50 AM [facility] REPOSITORY TYPE CODE TESTS RESULT OUT OF REFERENCE UNITS RANGE LAB L700.7000 Normal 0-9 Nonpreg Negative HCGSQUAL NEGATIVE LAB L700.6700 Normal =>Qualitative mIU/mL HCG Qual < 1 triggr Performed By: #### L700.6800 #### [facility] [address] [place], [address] MSC Observed: 08/19/2018 Status: UNK Source: [facility] 5:35 PM [facility] REPOSITORY DATE OF SERVICE: 08/19/2018CHIEF COMPLAINT: Cough, congestion.HISTORY: This is a 28-year-old female who presented with cough and congestion goingon for 2 weeks. No other complaint. She just finished her prescription fordoxycycline yesterday. No other complaint.ALLERGIES: BIAXIN AND AUGMENTIN.PHYSICAL EXAMINATION: Vital signs: Blood pressure is 134/50, pulse 88,angcqpeqbshx76, temperature 98.3, pulse oximetry 95%. HEENT: Clear nasal drainage.TMs clear, pharynx clear. Lungs: Within normal limits. Heart: Within normallimits.ASSESSMENT: Acute upper respiratory infection.PLAN: Discussed with the patient treatment and plan. Symptomatic supportivetreatments only. I have placed the patient on Bromfed DM 2 teaspoons orally 4 timesdaily, have patient follow up as needed. Thang N Souza, MDTD/[id number]: 08/19/2018 18:53DT: 08/23/2018 15:03SSI File#: [id number] #: [id number]/Reviewed by08/28/18 0909 AN [facility] PATIENT NAME: SHILOH FRANCES [id number] [facility] [address] [place] MEDICAL REC #: [id number] [address] [facility] REPORT [facility] CT ABD/PELVIS W/ IV Observed: 07/20/2018 Status: F Source: [facility] CONTRAST ONLY 11:37 PM [facility] REPOSITORY ORIGINALClinical history: Abdominal pain. 13 days . COMPARISON: Ultrasound pelvis on 07/20/2018. Axial scans were obtained through the abdomen and pelvis. Intravenous contrast was given for this exam. The scans were reviewed in axial, coronal, and sagittal planes of reconstruction. This exam was performed according to our departmental dose optimization program, and includes the following measures where applicable: automated exposure control, adjustment of the mAs and/or kVp according to patient size and/or exam, and an iterative reconstruction algorithm.. No acute abnormality is present at the lung bases. The liver, pancreas, spleen, adrenal glands, kidneys, abdominal aorta, and inferior vena cava show no sign of abnormality. The stomach is moderately distended with fluid and air. No localized gastric abnormality is present. Small intestine is unremarkable. The appendix is normal. The colon shows no sign of acute abnormality. There is no free intraperitoneal air or abnormal fluid collection in the abdomen. Scans through the pelvis demonstrate post enlargement of the uterus. Fluid is present in the endometrial canal as seen on ultrasound done earlier in the day. There is a small amount of free fluid in the pelvis which is physiologic in its amount. There are no inflammatory changes and no sign of hematoma or abscess. Urinary bladder is partly distended with no sign of abnormality. Skeletal structures are unremarkable. IMPRESSION: No sign of acute abdominal or pelvic abnormality. Expected post appearance of the uterus. Interpreted By: Dong Lemus MDPreliminary Report By: Dong Lemus MDElectronically Signed By: Dong Lemus MD Dictated Date: 07/20/2018 11:51:21 PM Prelim Date: 07/20/2018 11:51:21 PM Sign Date: 07/20/2018 11:55:30 PM US PELVIS NON-OB Observed: 07/20/2018 Status: F Source: [facility] COMPLETE 8:54 PM [facility] REPOSITORY ORIGINALUS PELVIS NON-OB TRANSABDOMINAL CLINICAL STATEMENT: Pelvic pain, vaginal bleeding, 13 days post vaginal delivery, mid upper abdominal pain for 4 days COMPARISON: None FINDINGS: The uterus measures 11.3 x 7.0 x 8.9 cm. There is fluid within the endometrial canal measuring up to 13 mm in thickness with a total endometrial thickness of 17 mm. Doppler flow to the uterus is within normal limits with no abnormal flow seen within the endometrial canal. No myometrial mass is seen. The RIGHT and LEFT ovaries measure 2.4 x 1.0 x 2.4 cm and 2.6 x 1.7 x 2.4 cm respectively. There is positive doppler flow to both ovaries. A small amount of free fluid is seen in the LEFT adnexa, likely physiologic. IMPRESSION:Nonspecific fluid in the endometrial canal without Doppler flow. This can be within normal limits given recent vaginal delivery. No masslike area noted to suggest retained products of conception. Normal sonographic evaluation of the ovaries. I have personally reviewed the images of this examination and agree with the resident's findings and interpretation. Interpreted By: Jamaal Banuelos DOPreliminary Report By: Patience Castillo DOElectronically Signed By: Jamaal Banuelos DO Dictated Date: 07/20/2018 9:37:12 PM Prelim Date: 07/20/2018 9:44:24 PM Sign Date: 07/20/2018 10:02:09 PM CBC Collected: 07/20/2018 Status: F Source: [facility] 8:38 PM [facility] REPOSITORY TYPE CODE TESTS RESULT OUT OF REFERENCE UNITS RANGE LAB WBC(LOINC) 4.60-10.80 10 3/mcL WBC 10.70 LAB RBCCT(LOINC 4.20-5.40 10 6/mcL ) RBC 4.65 LAB HGB(LOINC) Low 12.0-16.0 G/dL Hgb 10.9 LAB HCT(LOINC) Low 37.0-47.0 % Hct 33.6 LAB MCV(LOINC) Low 80.0-94.0 fL MCV 72.3 LAB MCH(LOINC) Low 27.0-31.2 pg MCH 23.4 LAB MCHC(LOINC) Low 33.0-37.0 G/dL MCHC 32.4 LAB RDW(LOINC) High 11.5-14.5 % RDW 17.7 LAB PLT(LOINC) High 130-400 10 3/mcL Platelet 415 LAB MPV(LOINC) 7.4-10.4 fL MPV 7.6 Performed By: #### CBC, ADIFF, ANEU #### [address] [address] #### LIP, CMP, GFR #### [place] [address] .AUTO DIFF Collected: 07/20/2018 Status: F Source: [facility] 8:38 PM [facility] REPOSITORY TYPE CODE TESTS RESULT OUT OF REFERENCE UNITS RANGE LAB PELON(LOINC) 37.0-80.0 % Neutrophil % 69.2 LAB LYM(LOINC) 10.0-50.0 % Lymphocyte % 24.6 LAB MON(LOINC) 1.7-13.0 % Monocyte % 4.2 LAB EO(LOINC) 0.0-7.0 % Eosinophil % 1.5 LAB BAS(LOINC) 0.0-2.5 % Basophil % 0.5 LAB ABLYM(LOIN 0.77-3.85 10 3/mcL C) Lymphocyte, 2.60 Absolute LAB KRUPA(LOINC 0.15-1.00 10 3/mcL ) Monocyte, 0.50 Absolute LAB AEOS(LOINC 0.00-0.40 10 3/mcL ) Eosinophil, 0.20 Absolute LAB ABAS(LOINC 0.00-0.19 10 3/mcL ) Basophil, 0.00 Absolute Performed By: #### CBC, ADIFF, ANEU #### [address] [address] #### LIP, CMP, GFR #### [address] [address] .NEUABS Collected: 07/20/2018 Status: F Source: [facility] 8:38 PM [facility] REPOSITORY TYPE CODE TESTS RESULT OUT OF REFERENCE UNITS RANGE LAB ANEU(LOINC) High 2.85-6.16 10 3/mcL 7.40 Neutrophil, Absolute Performed By: #### CBC, ADIFF, ANEU #### [place] [address] [place], [place] [address] #### LIP, CMP, GFR #### [address] [address] LIP Collected: 07/20/2018 Status: F Source: [facility] 8:38 [facility] REPOSITORY TYPE CODE TESTS RESULT OUT OF REFERENCE UNITS RANGE LAB LIP(LOINC) 73-393 U/L Lipase 196 Level Performed By: #### CBC, ADIFF, ANEU #### [place] [address] [place], [place] [address] #### LIP, CMP, GFR #### [address] [address] CMP Collected: 07/20/2018 Status: F Source: [facility] 8:38 [facility] REPOSITORY TYPE CODE TESTS RESULT OUT OF REFERENCE UNITS RANGE LAB GLU(LOINC) 70-105 mg/dL Glucose Level 90 LAB NA(LOINC) 136-145 mmol/L Sodium Level 141 LAB K(LOINC) 3.5-5.1 mmol/L Potassium Level 4.3 LAB CL(LOINC) 98-107 mmol/L Chloride 104 LAB CO2(LOINC) High 22-29 mmol/L CO2 30 LAB EBAL(LOINC mEq/L ) Electrolyte 7.0 Balance LAB BUN(LOINC) 7-18 mg/dL BUN 15 LAB CRE(LOINC) 0.55-1.02 mg/dL Creatinine Lvl 0.75 (s) LAB BC(LOINC) 7-27 ratio BUN/Creatinine 20 Ratio LAB CA(LOINC) 8.4-10.2 mg/dL Calcium Lvl 9.3 LAB PROT(LOINC 6.4-8.2 G/dL ) Total Protein 7.1 LAB ALB(LOINC) Low 3.5-5.0 G/dL Albumin Level 3.4 LAB GLB(LOINC) G/dL Globulin 3.7 LAB AG(LOINC) Low 1.1-2.5 ratio A/G Ratio 0.9 LAB BILT(LOINC 0.2-1.0 mg/dL ) Bili Total 0.2 LAB AP(LOINC) 40-135 U/L Alk Phos 78 LAB AST(LOINC) 10-40 U/L AST/SGOT 24 LAB ALT(LOINC) High 10-35 U/L ALT/SGPT 38 Performed By: #### CBC, ADIFF, ANEU #### [facility] [address] [place], [place] [address] #### LIP, CMP, GFR #### [address] [address] .GFR Collected: 07/20/2018 Status: F Source: [facility] 8:38 PM [facility] REPOSITORY TYPE CODE TESTS RESULT OUT OF REFERENCE UNITS RANGE LAB GFRAA(LOINC ml/min/1.73 ) GFR 111 sqm Result Comment: GFR Population mean for , Non- Americans Ages 20-29 = 116 mL/min/1.73 sq.m. Ages 30-39 = 107 mL/min/1.73 sq.m. Ages 40-49 = 99 mL/min/1.73 sq.m. Ages 50-59 = 93 mL/min/1.73 sq.m. Ages 60-69 = 85 mL/min/1.73 sq.m. Ages 70+ = 75 mL/min/1.73 sq.m. Chronic Kidney Disease: Less than 60 mL/min/1.73 square meters End Stage Renal Disease: Less than 15 mL/min/1.73 square meters LAB GFRNO(LOINC) ml/min/1.73sqm GFR Non- 91 Result Comment: GFR Population mean for , Non- Americans Ages 20-29 = 116 mL/min/1.73 sq.m. Ages 30-39 = 107 mL/min/1.73 sq.m. Ages 40-49 = 99 mL/min/1.73 sq.m. Ages 50-59 = 93 mL/min/1.73 sq.m. Ages 60-69 = 85 mL/min/1.73 sq.m. Ages 70+ = 75 mL/min/1.73 sq.m. Chronic Kidney Disease: Less than 60 mL/min/1.73 square meters End Stage Renal Disease: Less than 15 mL/min/1.73 square meters Performed By: #### CBC, ADIFF, ANEU #### [address] [address] #### LIP, CMP, GFR #### [address] [address] UA Collected: 07/20/2018 Status: F Source: [facility] 8:38 [facility] REPOSITORY TYPE CODE TESTS RESULT OUT OF RANGE REFERENCE UNITS LAB SPCUA(SOCORRO NC) UA Specimen Clean Type Catch LAB CLRUA(OSCORRO NC) UA Color Yellow LAB APPUA(SOC[place] Clear NC) UA Appear Clear LAB SGUA(LOIN Unknown C) UA Spec Grav 1.010 LAB GLUA(LOIN Negative mg/dL C) UA Glucose Negative LAB BILUA(SOCORRO Negative NC) UA Bili Negative LAB KETUA(SOCORRO Negative mg/dL NC) UA Ketones Negative LAB BLDUA(SOCORRO Unknown Negative NC) UA Blood Large LAB PHUA(LOIN C) UA pH 7.0 LAB PROUA(SOCORRO Negative mg/dL NC) UA Protein Trace LAB UROUA(SOCORRO E.U./dL NC) UA Urobilinogen 0.2 LAB NITUA(SOCORRO Negative NC) UA Nitrite Negative LAB LEUUA(SOCORRO Unknown Negative NC) UA Leuk Est Moderate Performed By: #### UA, PREGU, UAMICAO #### [address] [address] PREGU Collected: 07/20/2018 Status: F Source: [facility] 8:38 PM [facility] REPOSITORY TYPE CODE TESTS RESULT OUT OF RANGE REFERENCE UNITS LAB PREGU(LOIN C) Negative Test Urine LAB PRUG1(LOIN Unknown C) HCG not test (u) int detected. Performed By: #### UA, PREGU, UAMICAO #### [address] [address] .URINALYSIS MICROSCOPIC Collected: 07/20/2018 Status: F [facility] REPOSITORY TYPE CODE TESTS RESULT OUT OF RANGE REFERENCE UNITS LAB WBCUA(LOIN Unknown None Seen /hpf C) UA WBC 10-15 LAB RBCUA(LOIN Unknown None Seen /hpf C) UA RBC 5-10 LAB EPIUA(LOIN Unknown None Seen /hpf C) UA Squam 5-10 Epithelial LAB AMOUA(LOIN /hpf C) UA Amorphus 2+ LAB BACUA(LOIN Unknown /hpf C) UA Bacteria 1+ Performed By: #### UA, PREGU, UAMICAO #### [facility] [address] [place], [place] [address] Observed: 07/20/2018 Status: F Source: [facility] 8:38 PM [facility] REPOSITORY . MICRO - MicrobiologyPROCEDURE: Urine Culture [*1] Urine, Clean Catch BODY SITE:COLLECTED DATE/TIME: 07/20/2018 20:38 EDT RECEIVED DATE/TIME: 07/21/2018 15:13 EDTSTART DATE/TIME: 07/21/2018 15:14 EDT FREE TEXT SOURCE:FINAL REPORTSFinal Report []Verified Date/Time/Personnel: 07/23/2018 07:35 EDT>100,000 organisms per mLMixed without predominant isolate(s). SensitivityTesting not indicated. Probably contamination. Repeatculture suggested.PRELIMINARY REPORTSPreliminary Report []Verified Date/Time/Personnel: 07/22/2018 07:38 EDTNo growth to datePerforming Locations*1: This test was performed at: [facility], [address] [place] [address], [address] [place] [address] Performed By: #### CUR ####[facility] [place] [address] DISCHARGE SUMMARY Observed: 07/10/2018 Status: F Source: [place] 8:04 AM [facility] REPOSITORY [facility] [id number] [place], [place] [address]Iauwwwpkt Maclobw36/17/18 0802MR#: [id number] Acct: [id number]: SHILOH IRAHETA Rep #: [id number]: 1990 28 From: Sajan Cabrera MDPCP: Forrest Quiñonez MD Status: DIS IN YLocation: WP [id number] Date and DiagnosisDate of Admission: 07/07/18Date of Discharge: 07/09/18- Primary Discharge DiagnosisS/P SVDHospital Course and ZxykirbzzCpwcpopspnyue23/14/18 07:04Consult: Anesthesia RoutineComment:Reason For Exam: prenatalOperations: NoneProcedures: - - Pitocin induction of labor, epidural, SVDSummary of Care Provided:The patient is a 28 year old F [admitted at [facility] for elective induction of labor. Sheunderwent pitocin induction of labor with resultant uncomplicated vaginal delivery of a liveneonate. Post course was unremarkable. She was discharged home on PP day#2.]Discharge Diet: No RestrictionsDischarge Activity: Return to Normal Activity, May Drive, May ShowerReturn to work on:: 09/07/18May shower in (days): 0May resume sexual activity in: 4-6 weeksCall your doctor if your incision/area has: Sudden Increased Bleeding, Increased Pain/Swelling, Foul Smelling DischargeCall your doctor if you observe: Fever of 101 or Higher, Inability to urinate, Inability tohave a bowel movement, Using more than one pad per hour, Shortness of breath, Chest pain, Calfdiscomfort, Uncontrolled painHome Medications:Medications to take at DischargeVilazodone Hydrochloride [Viibryd] 40 mg PO DAILY 05/13/16Ferrous Gluconate 325 mg PO DAILY 07/07/18Prenatal Vits [Prenatabs FA ] 1 tab PO DAILY 07/07/18Ibuprofen 600 mg PO Q6H PRN PRN #30 tab 07/08/18ollowing Prescrptions Were Given to Patient:Ibuprofen 600 mg PO Q6H PRN PRN #30 tabPRN Reason: pain or crampingPrimary Care Physician:Elan Quiñonez MD [Primary Care Provider] -Please Follow Up With: Sajan Cabrera MDWhen: Call office to make 6-week check-upDisposition: HomeMinutes spent on discharge:: 15Patient Condition:: GoodMedical Necessity- Tobacco UseSmoking Status: Never smokerMeaningful Use InfoMeaningful Use Diagnoses (Choose all that apply): None soyqsdppiu48/17/18 0804 <Electronically signed by Sajan Cabrera MD>Date ____ Sajan Cabrera MDCosigner Signature (if applicable): Date CC: Forrest Quiñonez MD; Sajan Cabrera MD Signed DISCHARGE INSTRUCTION Observed: 07/08/2018 Status: F Source: [place] 8:07 AM [facility] REPOSITORY [facility] [id number] [place], [place] [address]Ixojbycwaeod for Home/Discharge Kwztkxwheiiw51/15/1806MR#: [id number] Acct: [id number]: SHILOH IRAHETA Rep #: [id number]: 1990 28 From: Sajan Cabrera MDPCP: Olamide TRIPLETT,Forrest Status: ADM INDischarge Diet: No RestrictionsDischarge Activity: Return to Normal Activity, May Drive, May ShowerReturn to work on:: 09/07/18May shower in (days): 0May resume sexual activity in: 4-6 weeksCall your doctor if your incision/area has: Sudden Increased Bleeding, Increased Pain/Swelling, Foul Smelling DischargeCall your doctor if you observe: Fever of 101 or Higher, Inability to urinate, Inability tohave a bowel movement, Using more than one pad per hour, Shortness of breath, Chest pain, Calfdiscomfort, Uncontrolled painAdditional Instructions:If you experience any of the following, contact your healthcare provider.* Bleeding that soaks a pad every hour for 2 hours* Fever 100.4 or higher* Unrelieved incision or abdominal pain* Swelling, redness, discharge or bleeding from your incision or episiotomy site* Your incision begins to separate* Problems urinating (including inability to urinate or burning while urinating).* Visual changes* Severe headache* Flu-like symptoms* Pain or redness in one of both of your breasts* Pain, warmth, tenderness or swelling in your legs, especially the calf area* Frequent nausea and vomiting* Symptoms of depression or anxietyIf you experience any of the following, call 911 or go to the nearest Emergency Room.* Chest pain* Problems breathing* Seizure activity* Partial or complete paralysis of a body part, slurred speech, weakness or drooping of theface, or a sudden inability to walk or hold your balanceAllergies/Adverse Reactions:Allergiesamoxicillin trihydrate [From Augmentin] Allergy (Verified 07/01/18 20:47)Rashclarithromycin [From Biaxin] Allergy (Verified 07/01/18 20:47)Rashpotassium clavulanate [From Augmentin] Allergy (Verified 07/01/18 20:47)RashMedications to take at DischargeVilazodone Hydrochloride [Viibryd] 40 mg PO DAILY 05/13/16Ferrous Gluconate 325 mg PO DAILY 07/07/18Prenatal Vits [Prenatabs FA ] 1 tab PO DAILY 07/07/18Ibuprofen 600 mg PO Q6H PRN PRN #30 tab 07/08/18The following prescriptions were given:Ibuprofen 600 mg PO Q6H PRN PRN #30 tabPRN Reason: pain or crampingPlease Follow Up With: Sajan Cabrera MDWhen: [facility]ician:Elan Quiñonez MD [Primary Care Provider] -Test Results:Test results from this visit will be discussed in further detail at your follow-up appointment,if applicable.Proposed Discharge Date: 07/08/1808806 <Electronically signed by Sajan Cabrera MD>Date Sajan Cabrera MDCC: Forrest Quiñonez MD CBC-COMPLETE BLOOD CNT Collected: 07/08/2018 Status: F Source: [place] NO DIFF 6:00 AM [facility] REPOSITORY Order Comment: Reason for Laboratory Test Day #1 TYPE CODE TESTS RESULT OUT OF RANGE REFERENCE UNITS LAB L100.1000 High 4.4-11.0 K/mm3 WBC 15.9 LAB L100.1200 Low 4.2-5.4 M/mm3 RBC 3.53 LAB L100.1300 Low 12.0-15.0 g/dl HGB 8.3 LAB L100.1400 Low 37-47 % HCT 27.4 LAB L100.1500 Low 81-99 fL MCV 77.6 LAB L100.1600 Low 27.0-32.0 pg MCH 23.5 LAB L100.1700 Low 32-36 g/gl MCHC 30.3 LAB L100.1810 High 11.6-14.6 % RDW 15.4 CV LAB L100.1820 Normal 35.1-43.9 fl RDW 41.8 SD LAB L100.1900 Normal 150-450 K/mm3 PLT 243 LAB L100.2000 Normal 6.2-12.0 fl MPV 9.5 Performed By: #### L100.0500 #### [facility] [address] [place], [address] OPERATIVE REPORT Observed: 07/07/2018 Status: F Source: MELVIN 1:39 PM [facility] REPOSITORY [facility] [address] [place], [place] [address]Vnlmsqcpv Rmcoxk75/14/18 1332#: [id number] Acct: [id number]: SHILOH IRAHETA Rep #: [id number]: 1990 28 From: Sajan Cabrera MDPCP: Forrest Quiñonez MD Status: ADM IN ocation: [id number] DeliveryMaternal Presentation: Elective Ibrhqywcw26c6p ega admitted for induction of labor. Pitocin induction resulted in uncomplicated vaginaldelivery. Placenta delivered intact. Intact vagina, cervix, perineum.Method of Induction: PitocinAmniotic Membrane Rupture Type: ArtificialRupture of Membrane time: 0758Amniotic Fluid Description: ClearFinal KELLY: 07/08/18inal KELLY Source: US <20 weeksGestational age: 39 Weeks and 6 DaysDate of Procedure: 07/07/18Pre-Operative Diagnosis: laborPost-Operative Diagnosis: sameSurgery/ Procedure Performed: Spontaneous Vaginal DeliveryAnesthesiologist: DeHorta,EricType of Anesthesia: EpiduralDescription of Procedure:see aboveFetal Presentation: VertexPlacental Delivery Description: SpontaneousPlacenta Disposition: Women's PavilionPercentage of Placenta Abruption: 0Fetal Cord Vessel Description: 3 VesselsNuchal Cord Compression: Without compressionCord Entanglement: NoneDrain: Nova to straight drainEstimated Blood Loss: 200ccInfant A gender: MaleApgar (1 minute): 8Apgar (5 minute): 8Episiotomy Description: NoneLaceration: NoneMedications given after delivery: IV PitocinComplications: None07/07/18 1339 <Electronically signed by Sajan Cabrera MD>Date Sajan Cabrera MDCC: Forrest Quiñonez MD; Sajan Cabrera MD Signed CBC-COMPLETE BLOOD CNT Collected: 07/07/2018 Status: F Source: MEL[place] NO DIFF 7:45 AM [facility] REPOSITORY TYPE CODE TESTS RESULT OUT OF RANGE REFERENCE UNITS LAB L100.1000 High 4.4-11.0 K/mm3 WBC 11.9 LAB L100.1200 Low 4.2-5.4 M/mm3 RBC 3.78 LAB L100.1300 Low 12.0-15.0 g/dl HGB 8.7 LAB L100.1400 Low 37-47 % HCT 28.8 LAB L100.1500 Low 81-99 fL MCV 76.2 LAB L100.1600 Low 27.0-32.0 pg MCH 23.0 LAB L100.1700 Low 32-36 g/gl MCHC 30.2 LAB L100.1810 High 11.6-14.6 % RDW 15.5 CV LAB L100.1820 Normal 35.1-43.9 fl RDW 43.3 SD LAB L100.1900 Normal 150-450 K/mm3 PLT 265 LAB L100.2000 Normal 6.2-12.0 fl MPV 9.8 Performed By: #### L100.0500 #### [facility] [address] [place], [place], [address] TYPE AND SCREEN Collected: 07/07/2018 Status: F Source: [place] 7:45 AM [facility] REPOSITORY Order Comment: Reason for Type AND Screen/Red Cells: TYPE CODE TESTS RESULT OUT OF RANGE REFERENCE UNITS LAB B10.0800 Normal BLOOD A TYPE GEL POSITIVE LAB B100.4000 Normal Antibody NEGATIVE Screen Performed By: #### B101.7450 #### [facility] [address] [place], [address] (ROM) RUPTURE OF Collected: 06/23/2018 Status: F Source: [place] MEMBRANES 2:15 PM [facility] REPOSITORY Order Comment: STAT. FAX OFFICE WITH RESULTS PER ORDER. [phone] TYPE CODE TESTS RESULT OUT OF RANGE REFERENCE UNITS LAB L205.1310 Normal Negative ROM Negative Result Comment: Amniotic fluid not present indicates No Rupture of Membranes at time of specimen collection. Performed By: #### L205.1000 #### [facility] [address] [place], [place], [address] GROUP B STREP DNA Collected: 06/10/2018 Status: F Source: [place] BY PCR 11:10 AM [facility] REPOSITORY Order Comment: Source: Vaginal-Rectal TYPE CODE TESTS RESULT OUT OF RANGE REFERENCE UNITS LAB L8200.0100 Normal Negative GBS Negative TEST RESULT Performed By: #### L8200.0000 #### [facility] [address] [place], [place], [address] Observed: 06/10/2018 Status: F Source: [place] CULTURE, GROUP B 12:00 AM [facility] STREPTOCOCCUS REPOSITORY Comments: 3ROB CultureGroup B Beta Streptococcus is not isolated. Performed By: #### M100.1800 ####[facility] [address] [place], [place], [address] URINALYSIS, COMPLETE Collected: 05/31/2018 Status: F Source: [place] 10:00 PM [facility] REPOSITORY Order Comment: How was Urine Obtained? CLEAN CATCH TYPE CODE TESTS RESULT OUT OF RANGE REFERENCE UNITS LAB L400.3000 Normal Yellow COLOR Yellow LAB L400.3050 Normal Clear CLARITY Sl. Cloudy LAB L400.3200 Normal Normal mg/dl GLUCOSE, UR Normal LAB L400.3300 Normal Negative mg/dL BILIRUBIN Negative URINE LAB L400.3400 Normal Negative mg/dl KETONE UR Negative LAB L400.3465 Normal 1.002-1.030 SP.GR. 1.020 DIPSTX LAB L400.3550 Normal 5.0 - 8.0 pH UR 8.0 LAB L400.3600 High Negative mg/dl PROT DIPSTX 15 LAB L400.3700 High Normal mg/dl UROBILI 1 LAB L400.3750 Normal Negative NITRITE UR Negative LAB L400.3780 Normal Negative /ul OCCULT Negative BLOOD-UR LAB L400.3800 High Negative /ul LEUK 500 ESTERASE LAB L400.4050 Normal 0-5 /hpf WBC 10-25 SEEN LAB L400.4100 Normal 0-5 /hpf RBC-UA 0 SEEN LAB L400.4150 Normal 5-10 /hpf SQUAM EPI 10-25 SEEN LAB L400.4300 Normal None Seen /hpf BACTERIA 3+ LAB L400.4350 Normal <or=2+ /hpf MUCUS, 0 SEEN URINE Performed By: #### L400.0001 #### [facility] [address] [place], [address] Observed: 05/31/2018 Status: F Source: MELVIN CULTURE, URINE 10:00 PM [facility] REPOSITORY Urine CultureORGANISM 1: Mixed Gram Positive OrganismsColony Count 11,000-25,000MIX CULTURE Mixed contaminants. Submit a new specimen if indicated. Performed By: #### M100.0650 ####[facility] [address] [place], [address] VENOUS DUPLEX LOWER Observed: 05/15/2018 Status: F Source: MEL[place]IN EXTREMITY 2:45 PM [facility] REPOSITORY [facility] [address] [place], [place] [address]Pjpvvw Duplex US - Young Rzkgxm10/21/18 1451MR#: [id number] Acct: [id number]: SHILOH IRAHETA Rep #: [id number]: 1990 28 From: Oscar Kaplan MDAttashley Dr: Sajan Cabrera MD Status: REG CLIOrdering Dr: Sajan Cabrera MD Date: 05/14/18Location: CVS Sex: F CAdmitted:Reason For Study: LEG PAINRIGHT LEFTGSV is normal. GSV is normal.CFV is compressible, spontaneous, phasic, CFV is compressible, spontaneous, phasic,competent and demonstrates normal competent, and demonstrates normalaugmentation. augmentation.FV is compressible, spontaneous, phasic, FV is compressible, spontaneous, phasic,competent and demonstrates normal competent and demonstrates normalaugmentation. augmentation.POP V is compressible, spontaneous, phasic, POP V is compressible, spontaneous,phasic,competent and demonstrates normal competent and demonstrates normalaugmentation. augmentation.T/P Trunk is compressible. T/P Trunk is compressible.PTV is compressible. PTV is compressible.RT PerV is compressible. LT PerV is compressible.ProcedureExam performed in department.A preliminary report was called and/or faxedto Dr. Cabrera.Interpretation SummaryDeep veins of the lower extremities are bilaterally patent and compressible segmentally. Thereisno evidence of deep vein thrombosis on either side. Valvular competence appears intact withintheproximal deep venous systems bilaterally. The greater saphenous veins appear bilaterally patentandcompressible segmentally. Ordering Physician: Sajan CabreraReferring Physician: Sajan Cabrera EPerformed By: Cheryle Cook, RVT 05/15/18 1444Date Oscar Kaplan MDCC: Forrest Quiñonez MD; Sajan Cabrera MD Date Dictated: 05/14/18 1451Date Transcribed: 05/15/18 1444Transcriptionist:Signed GESTATIONAL GTT 3HR Collected: 04/24/2018 Status: F Source: [place] 100G 7:00 AM [facility] REPOSIT[facility] Order Comment: Is Patient Fasting? Y TYPE CODE TESTS RESULT OUT OF RANGE REFERENCE UNITS LAB L501.0650 Normal <105 mg/dL GLU 70 GTT-FASTING Result Comment: GLUCOSE TOLERANCE TEST FOR Reference Interval GESTATIONAL DIABETES Fasting <105 mg/dL 1 hour <190 mg/dl 2 hour <165 mg/dl 3 hour <145 mg/dl LAB L501.0660 Normal <190 mg/dL GLU GTT- 1HR 180 LAB L501.0670 Normal <165 mg/dL GLU GTT- 2HR 128 LAB L501.0680 Normal <145 L GLU GTT- 3HR 132 Performed By: #### L500.4710 #### [facility] [address] [place], [place], [address] CBC-COMPLETE BLOOD CNT Collected: 04/14/2018 Status: F Source: [place] NO DIFF 9:27 AM [facility] REPOSITORY TYPE CODE TESTS RESULT OUT OF RANGE REFERENCE UNITS LAB L100.1000 Normal 4.4-11.0 K/mm3 WBC 8.8 LAB L100.1200 Low 4.2-5.4 M/mm3 RBC 3.43 LAB L100.1300 Low 12.0-15.0 g/dl HGB 9.9 LAB L100.1400 Low 37-47 % HCT 30.9 LAB L100.1500 Normal 81-99 fL MCV 90.1 LAB L100.1600 Normal 27.0-32.0 pg MCH 28.9 LAB L100.1700 Normal 32-36 g/gl MCHC 32.0 LAB L100.1810 Normal 11.6-14.6 % RDW 13.3 CV LAB L100.1820 Normal 35.1-43.9 fl RDW 42.7 SD LAB L100.1900 Normal 150-450 K/mm3 PLT 273 LAB L100.2000 Normal 6.2-12.0 fl MPV 10.1 Performed By: #### L100.0500 #### [facility] [address] [place], [place], [address] GLUCOSE CHALLENGE GEST Collected: 04/14/2018 Status: F Source: [place] 1H 50G 9:27 AM [facility] REPOSITORY TYPE CODE TESTS RESULT OUT OF RANGE REFERENCE UNITS LAB L501.0250 High 70-140 mg/dL GLU 151 GEST 50g 1H Performed By: #### L501.0250 #### [facility] [address] [place], [place], [address] URINE DRUG SCREEN Collected: 12/16/2017 Status: F Source: [place] (VISTA) 10:05 AM [facility] REPOSITORY Order Comment: List of Drugs Taken or Suspected? UNK TYPE CODE TESTS RESULT OUT OF RANGE REFERENCE UNITS LAB L505.0075 Normal TO BE CONFIRMED Result Comment: CONFIRMATORY TESTING FOR ALL POSITIVE URINE DRUG SCREEN RESULTS WILL ONLY BE SENT OUT UPON PHYSICIAN ORDER. VISTA Urine Drug Screen methods provide only preliminary analytical test results. A more specific alternate chemical method must be used in order to obtain a confirmed analytical result. Gas chromatography/mass spectrometery (GC/MS) is the preferred confirmatory method. Clinical consideration and professional judgement should be applied to any drug of abuse test result, particularly when preliminary positive results are used. URINE TCA TESTING MUST BE ORDERED SEPARATELY. USE TEST MNEMONIC: UTCA LAB L505.5005 Normal VISTA UDS PH 6 LAB L505.5015 Normal <1000 AMPHETAMINES NEGATIVE ng/mL LAB L505.5025 Normal < 200 BARBITIURATES NEGATIVE ng/mL LAB L505.5035 Normal < 200 BENZODIAZIPINE NEGATIVE ng/mL LAB L505.5045 Normal < 300 COCAINE NEGATIVE ng/mL LAB L505.5055 Normal < 500 ECSTACY NEGATIVE ng/mL LAB L505.5065 Normal < 300 METHADONE NEGATIVE ng/mL LAB L505.5075 Normal < 300 OPIATES NEGATIVE ng/mL LAB L505.5085 Normal < 25 PCP NEGATIVE ng/mL LAB L505.5095 Normal < 50 THC NEGATIVE ng/mL Performed By: #### L505.5000, L505.6240 #### [facility] [address] [place], [place], [id number] NICOTINE URINE DRUG Collected: 12/16/2017 Status: F Source: [place] SCREEN 10:05 AM [facility] REPOSIT[facility] Order Comment: List of Drugs Taken or Suspected? UNK TYPE CODE TESTS RESULT OUT OF RANGE REFERENCE UNITS LAB L505.6250 Normal TO BE CONFIRMED Result Comment: CONFIRMATORY TESTING FOR ALL POSITIVE URINE DRUG SCREEN RESULTS WILL ONLY BE SENT OUT UPON PHYSICIAN ORDER. The results of Urine Drug Screen methods provide only preliminary analytical test results. A more specific alternate chemical method must be used in order to obtain a confirmed analytical result. Gas chromatography/mass spectrometery (GC/MS) is the preferred confirmatory method. Clinical consideration and professional judgement should be applied to any drug of abuse test result, particularly when preliminary positive results are used. LAB L505.6270 Normal <200 ng/mL COT DRG Negative SCREEN Result Comment: Cotinine is the first-stage metabolite of Nicotine. Performed By: #### L505.5000, L505.6240 #### [facility] [place], [address] CBC W/DIFF, AUTOMATED Collected: 12/16/2017 Status: F Source: MELVIN 10:05 AM [facility] REPOSITORY TYPE CODE TESTS RESULT OUT OF RANGE REFERENCE UNITS LAB L100.1000 High 4.4-11.0 K/mm3 WBC 11.4 LAB L100.1200 Low 4.2-5.4 M/mm3 RBC 4.03 LAB L100.1300 Normal 12.0-15.0 g/dl HGB 12.1 LAB L100.1400 Low 37-47 % HCT 36.1 LAB L100.1500 Normal 81-99 fL MCV 89.6 LAB L100.1600 Normal 27.0-32.0 pg MCH 30.0 LAB L100.1700 Normal 32-36 g/gl MCHC 33.5 LAB L100.1810 Normal 11.6-14.6 % RDW 13.0 CV LAB L100.1820 Normal 35.1-43.9 fl RDW 42.4 SD LAB L100.1900 Normal 150-450 K/mm3 PLT 271 LAB L100.2000 Normal 6.2-12.0 fl MPV 10.2 LAB L100.2100 High 47-70 % NEUT% 78.8 LAB L100.2200 Low 19-41 % LY% 13.9 LAB L100.2300 Normal 0-10 % MONO% 6.4 LAB L100.2400 Normal 0-5 % EO% 0.7 LAB L100.2500 Normal 0-1 % BASO% 0.1 LAB L100.2550 Normal 0.0-0.9 % IM 0.100 GRAN % Result Comment: IG% - Immature Granulocytes (promyelocytes, myelocytes and metamyelocytes) > 1% indicates that a LEFT SHIFT is Present. LAB L100.2620 High 2.0-7.7 X10 3/uL Absolute Neut 9.0 LAB L100.2720 Normal 0.83-4.51 X10 3/ul Absolute Lymph 1.59 Performed By: #### L100.0100 #### [facility] [address] [place], [place], [address] URINALYSIS, ROUTINE Collected: 12/16/2017 Status: F Source: MELVIN (DIPSTICK) 10:05 AM [facility] REPOSITORY Order Comment: How was Urine Obtained? Urine, Random TYPE CODE TESTS RESULT OUT OF RANGE REFERENCE UNITS LAB L400.3000 Normal Yellow COLOR Straw LAB L400.3050 Normal Clear CLARITY Clear LAB L400.3200 Normal Normal mg/dl GLUCOSE, UR Normal LAB L400.3300 Normal Negative mg/dL BILIRUBIN Negative URINE LAB L400.3400 Normal Negative mg/dl KETONE UR Negative LAB L400.3465 Normal 1.002-1.030 SP.GR. 1.015 DIPSTX LAB L400.3550 Normal 5.0 - 8.0 pH UR 6.0 LAB L400.3600 Normal Negative mg/dl PROT DIPSTX Negative LAB L400.3700 Normal Normal mg/dl UROBILI Normal LAB L400.3750 Normal Negative NITRITE UR Negative LAB L400.3780 Normal Negative /ul OCCULT Negative BLOOD-UR LAB L400.3800 High Negative /ul LEUK 25 ESTERASE Performed By: #### L400.2010 #### [facility] [address] [place], [place], [id number] THYROID STIM HORMONE Collected: 12/16/2017 Status: F Source: MELVIN (TSH) 10:05 AM [facility] REPOSITORY TYPE CODE TESTS RESULT OUT OF RANGE REFERENCE UNITS LAB L501.9520 Normal 0.358-3.74 uIU/mL TSH 1.14 Performed By: #### L501.9520 #### [facility] [address] [place], [address] T AND S-NO Collected: 12/16/2017 Status: F Source: [place] CHARGE W/PNP 10:05 AM [facility] REPOSITORY Order Comment: Reason for Type AND Screen/Red Cells: PRENATALSurgery? N TYPE CODE TESTS RESULT OUT OF RANGE REFERENCE UNITS LAB B10.0800 Normal BLOOD A TYPE GEL POSITIVE LAB B100.4050 Normal Ab NEGATIVE SCREEN GEL Performed By: #### B100.7550 #### [facility] [address] [place], [address] RUBELLA IGG Collected: 12/16/2017 Status: F Source: [place] 10:05 AM [facility] RE[facility] TYPE CODE TESTS RESULT OUT OF RANGE REFERENCE UNITS LAB L509.4000 Normal IU/mL Rubella 233.2 IgG Result Comment: Antibody results Interpretation of Immune Status < 5 IU/ml Presumed Non-immune 5 - < 10 IU/ml Equivocal > or = 10 IU/ml Presumed Immune Performed By: #### L509.4000, L3890.6005 #### [facility] [place], [address] HIV - [facility] Collected: 12/16/2017 Status: F Source: [place] 10:05 AM [facility] REPOSITORY TYPE CODE TESTS RESULT OUT OF RANGE REFERENCE UNITS LAB L3890.6005 Normal Nonreactive HIV - [facility] Non-Reactive Performed By: #### L509.4000, L3890.6005 #### [facility] [place], [address] HEPATITIS B SURFACE Collected: 12/16/2017 Status: F Source: [place] AG 10:05 AM [facility] REPOSITORY TYPE CODE TESTS RESULT OUT OF RANGE REFERENCE UNITS LAB L3100.0400 Normal Negative HB Negative SURF AG Result Comment: Performed at: - [facility] [id number] Help Desk Operator: Dru Thornton PhD, Phone: [phone] Performed By: #### L3100.0390, L3100.0625 #### [facility] (refer to report for specific site) refer to report for address and phone number HEPATITIS C ANTIBODIES Collected: 12/16/2017 Status: F Source: MELVIN 10:05 AM [facility] RE[facility]ITORY TYPE CODE TESTS RESULT OUT OF RANGE REFERENCE UNITS LAB L3100.0650 Normal 0.0-0.9 s/co ratio HEP C <0.1 AB Result Comment: Negative: < 0.8 Indeterminate: 0.8 - 0.9 Positive: > 0.9 The CDC recommends that a positive HCV antibody result be followed up with a HCV Nucleic Acid Amplification test (086961). Performed By: #### L3100.0390, L3100.0625 #### [facility] (refer to report for specific site) refer to report for address and phone number RPR Collected: 12/16/2017 Status: F Source: MELVIN 10:05 AM [facility] RE[facility] TYPE CODE TESTS RESULT OUT OF REFERENCE UNITS RANGE LAB L700.5100 Normal NONREACTIVE NONREACTIVE RPR Performed By: #### L700.5100 #### [facility] [address] [place], [address] CT/NG W[facility] BY PCR Collected: 12/02/2017 Status: F Source: MELVIN 10:30 AM [facility] TYPE CODE TESTS RESULT OUT OF RANGE REFERENCE UNITS LAB L8200.2100 Normal Negative Negative Chlam Trac PCR LAB L8200.2200 Normal Negative NG Negative by PCR Performed By: #### L8200.2000 #### [facility] [address] [facility] [place], [address] PAP I-G W/RFX HRHPV Collected: 12/02/2017 Status: F Source: MELVIN 10:30 AM [facility] RE[facility]ITORY Order Comment: CYTOLOGY INFORMATION:- CLINICAL INFORMATION: - DATE LMP/MENOPAUSE: 10/02/17 LMP- COLLECTION VIAL: Thin Prep Vial- QLIKVIEW DEVELOPER SOURCE: CERVICAL/ENDOCERVICAL- COLLECTION TECHNIQUE: BRUSH/SPATULASpecimen Comment: [id number] Comment: No. of containers..01 ThinPrep Vial TYPE CODE TESTS RESULT OUT OF RANGE REFERENCE UNITS LAB L7400.0800 Normal . DIAGN Comment Result Comment: NEGATIVE FOR INTRAEPITHELIAL LESION AND MALIGNANCY. LAB L7400.0900 Normal . ADEQ Comment Result Comment: Satisfactory for evaluation. Endocervical and/or squamous metaplastic cells (endocervical component) are present. LAB L7400.1400 Normal . PERFORM Comment Result Comment: Jacek Hatfield, Market Research Specialist (ASCP) LAB L7400.2575 Normal . TEST Comment METHOD Result Comment: This liquid based ThinPrep(R) pap test was screened with the use of an image guided system. LAB L7400.2600 Normal . COMM . LAB L7400.2700 Normal . PAPSMR Comment Result Comment: The Pap smear is a screening test designed to aid in the detection of premalignant and malignant conditions of the uterine cervix. It is not a diagnostic procedure and should not be used as the sole means of detecting cervical cancer. Both false-positive and false-negative reports do occur. LAB L7400.2800 Normal . HPV Comment RFLX Result Comment: The HPV DNA reflex criteria were not met with this specimen result therefore, no HPV testing was performed. Performed at: [address] [id number] Help Desk Operator: Alexus Connor MD, Phone: [phone] Performed By: #### L7400.0350 #### [facility] (refer to report for specific site) refer to report for address and phone number ALLERGIES ALLERGIES DATE TYPE / CODE NAME / CODE REACTION SEVERITY SOURCE 09/11/2018 Drug amoxicillin Rash Unknown [place] Allergy/416 trihydrate/[id number] [facility] 470733([facility] [place] 707([facility]) Repository 09/11/2018 Drug potassium Rash Unknown [place] Allergy/416 clavulanate/[id number] [facility] 221913([facility] [place] 2809([facility] ED [facility]) Repository 09/11/2018 Drug clarithromycin/F00 Rash Unknown [place] Allergy/638 [id number](RXNORM) [facility] 896962([facility] ED CT) Repository ENCOUNTERS ENCOUNTERS ADMIT/DISCHARGE ACCOUNT NUMBER ADMITTING ENCOUNTER LOCATION SOURCE CLASS 09/18/2018 [id number] [facility] ding:SDC Repository 09/17/2018 [id number] [facility] ding:LAB Repository 08/19/2018 [id number] Ambulatory [facility] Repository ng:HMoisésSACHIN 07/20/2018/07/21/20 [id number] Emergency BBuilding:ER [place] [facility] Repository 07/07/2018/07/09/20 [id number] Sajan Cabrera Inpatient [facility] ding:WPRoom: Repository [id number]: 1 07/01/2018/07/02/20 [id number] Ambulatory [place] ding:WPOUTRo Repository om: WP011 06/23/2018 [id number] Ambulatory [facility] ding:LABSPEC Repository 06/18/2018/06/18/20 [id number] Ambulatory [address] ding:WPOUT Repository 06/10/2018 [id number] Ambulatory [facility] ding:LABSPEC Repository 06/05/2018/06/05/20 [id number] Ambulatory [address] ding:WPOUT Repository 06/02/2018/06/02/20 [id number] Ambulatory [place] ding:WPOUT Repository 05/31/2018/06/01/20 [id number] Ambulatory [place] ding:WPOUTRo Repository om: WP014 05/14/2018 [id number] Ambulatory [facility] ding:[facility] Repository 04/24/2018 [id number] Ambulatory [facility] ding:LAB Repository 04/14/2018 [id number] Ambulatory [facility] ding:WOBLAB Repository 12/16/2017 [id number] Ambulatory [facility] ding:WOBLAB Repository 12/02/2017 [id number] Ambulatory [facility] ding:LABSPEC Repository 08/08/2017/08/08/20 [id number] Emergency BBuilding:ER [place] [address] [facility] Repository PAYERS PAYERS ENCOUNTER GUARANTOR PAYER SUBSCRIBER SOURCE 09/18/2018 SHILOH Santiagooster [id number] Insurance:CARESOURCEP PHILLIPSDOB: [facility] [place]: [id number] [id number] Repository [address]Sic: [phone]) Date:2018-08-19P O [phone] () [address]ATTN: [place] [address]VW: 09/18/2018 Secondary NOT GIVENUNK [place] Insurance:SELF PAY [facility] Number: Effective Repository Date:2018-08-19 09/17/2018 SHILOH A Primary SHILOH A [place] [id number] Insurance:CARESOURCEP AUSTINDOB: [facility] Number: [id number] [id number] Repository [address]Ier: [phone]) Date:2018-09-17P O [phone] () [address]ATTN: [place]S [place] [address]LI: 09/17/2018 Secondary NOT GIVENUNK [place] Insurance:SELF PAY [facility] Number: Effective Repository Date:2018-09-17 08/19/2018 SHILOH A Primary SHILOH A [id number] Insurance:[facility] Number: Repository [place], [place] [id number] [phone]: ([phone]) Date:[phone] () [address] [place] [address] 24[address]PF: 07/20/2018 SHILOH A Primary SHILOH A [facility] PHILLIPSDOB: Insurance:CARESOURCE AUSTINDOB: [facility] [id number] MEDICAIDPolicy [id number] [facility] Number: [address] [place], [place] [id number] [place], [place] [address]Eks: (330) Date:2018-06-24 [phone]: (HP) [id number] [phone] ()Tel: Name:[address] [place] [address] () [address]UT: 07/07/2018 SHILOH A Primary SHILOH A [place] [id number] Insurance:CARESOURCEP PHILLIPSDOB: [facility] Number: [id number] [id number] Repository [address]Jcx: (330) Date:2018-06-10 O [phone] () [address]ATTN: [place] [address]KS: 07/07/2018 Secondary NOT GIVENUNK [place] Insurance:SELF PAY [facility] Number: Effective Repository Date:2018-06-10 07/01/2018 SHILOH A Primary SHILOH A [place] [id number] Insurance:CARESOURCEP PHILLIPSDOB: [facility] Number: [id number] Grove, [place] [id number] Repository [address]Lzj: (330) Date:2018-07-01 O [phone] () [address]ATTN: [place] [address]FT: 07/01/2018 Secondary NOT GIVENUNK [place] Insurance:SELF PAY [facility] Number: Effective Repository Date:2018-07-01 06/23/2018 SHILOH A Primary SHILOH A [place] [id number] Insurance:CARESOURCEP PHILLIPSDOB: [facility] Number: [id number] Grove, [place] [id number] Repository [address]Zqu: (330) Date:2018-06-23 O [phone] () [address]ATTN: [place] [address]BI: 06/23/2018 Secondary NOT GIVENUNK [place] Insurance:SELF PAY [facility] Number: Effective Repository Date:2018-06-23 06/18/2018 SHILOH A Primary SHILOH A [place] [id number] Insurance:CARESOURCEP PHILLIPSDOB: [facility] Number: [id number] Grove, [place] [id number] Repository [address]Zoq: (330) Date:2018-06-18P O [phone] () [address]ATTN: [place] [address]JM: 06/18/2018 Secondary NOT GIVENUNK [place] Insurance:SELF PAY [facility] Number: Effective Repository Date:2018-06-18 06/10/2018 SHILOH A Primary SHILOH A [place] [id number] Insurance:CARESOURCEP PHILLIPSDOB: [facility] Number: [id number] [place], [place] [id number] Repository [address]Afv: (330) Date:2018-06-10P O [phone] () [address]ATTN: [place] [address]EY: 06/10/2018 Secondary NOT GIVENUNK [place] Insurance:SELF PAY [facility] Number: Effective Repository Date:2018-06-10 06/05/2018 SHILOH A Primary SHILOH A [place] [id number] Insurance:CARESOURCEP PHILLIPSDOB: [facility] Number: [id number] Grove, [place] [id number] Repository [address]Tyx: ([phone]) Date:2018-06-05P O [phone] () [address]ATTN: [place] [address]ZW: 06/05/2018 Secondary NOT GIVENUNK [place] Insurance:SELF PAY [facility] Number: Effective Repository Date:2018-06-05 06/02/2018 SHILOH A Primary SHILOH A [place] [id number] Insurance:CARESOURCEP PHILLIPSDOB: [facility] Number: [id number] Grove, [place] [id number] Repository [address]Rkc: (330) Date:2018-06-02P O [phone] (HP) [address]ATTN: [place] [address]MY: 06/02/2018 Secondary NOT GIVENUNK [place] Insurance:SELF PAY [facility] Number: Effective Repository Date:2018-06-02 05/31/2018 SHILOH Forbes Primary SHILOH A [place] [id number] Insurance:CARESOURCEP PHILLIPSDOB: [facility] Number: [id number] Grove, [place] [id number] Repository [address]Wfq: ([phone]) Date:2018-05-31P O [phone] (HP) [address]ATTN: [place] [address]JU: 05/31/2018 Secondary NOT GIVENUNK [place] Insurance:SELF PAY [facility] Number: Effective Repository Date:2018-05-31 05/14/2018 SHILOH A Primary SHILOH A [place] [id number] Insurance:CARESOURCEP PHILLIPSDOB: [facility] Number: [id number] Grove, [place] [id number] Repository [address]Zzk: (330) Date:2018-05-14P O [phone] (HP) [address]ATTN: [place] [address]KB: 05/14/2018 Secondary NOT GIVENUNK [place] Insurance:SELF PAY [facility] Number: Effective Repository Date:2018-05-14 04/24/2018 SHILOH A Primary SHILOH A [place] [id number] Insurance:CARESOURCEP PHILLIPSDOB: [facility] Number: [id number] Hospital [address] [id number] Repository [place] Date:2018-04-15P O [phone]: ([phone]) [address]ATTN: CLAIMS [id number] (HP) [place] [address]ZZ: 04/24/2018 Secondary NOT GIVENUNK [place] Insurance:SELF PAY [facility] Number: Effective Repository Date:2018-04-15 04/14/2018 SHILOH Primary SHILOH [place] PHILLIPSPO BOX Insurance:CARESOURCEP PHILLIPSDOB: [facility] [id number] [facility] Number: [id number] Hospital [id number] Repository [place] Date:2018-04-14P O [phone]: (330) [address]ATTN: CLAIMS [id number] () [place] [address]VL: 04/14/2018 Secondary NOT GIVENUNK [place] Insurance:SELF PAY [facility] Number: Effective Repository Date:2018-04-14 12/16/2017 SHILOH Primary Gricel [place] PHILLIPSPO BOX Insurance:AULTCAREPol PhillipsDOB: [facility] [id number] [facility] Number: [id number] Hospital [id number] Repository [place] Date:3444-87-10JW [address]Rjq: [phone], [place] [phone] (HP) [address]GK: 12/16/2017 Secondary SHILOH [place] Insurance:CARESOURCEP PHILLIPSDOB: [facility] Number: [id number] Hospital [id number] Repository Date:2017-12-16P O [address]ATTN: [place] [address]DF: 12/16/2017 Tertiary NOT GIVENUNK [place] Insurance:SELF PAY [facility] Number: Effective Repository Date:2017-12-16 12/02/2017 Gricel Primary Gricel [place] PhillipsPo Box Insurance:AULTCAREPol PhillipsDOB: [facility] [id number] [facility] Number: [id number] Health Dyer [id number] Repository [place] Date:6498-18-36RZ [address]Elm: [phone]) 1886[place] [phone] (HP) [address]IE: 12/02/2017 Secondary SHILOH A [place] Insurance:CARESOURCEP PHILLIPSDOB: [facility] Number: [id number] Hospital [id number] Repository Date:2017-12-02 [address]ATTN: [place] [address]BF: 12/02/2017 Tertiary NOT GIVENUNK [place] Insurance:SELF PAY [facility]: Effective Repository Date:2017-12-02 08/08/2017 SHILOH A [facility] PHILLIPSDOB: [facility] [id number] Number: [id number] Repository [facility] [id number] [address] [place], [place] Date:2017-06-07 [place], [place] [address]Gjr: [id number] [phone]: () Name:[facility] [address] [address] ()Tel: [address] [place] [address]EY: [phone] ([phone] 08/08/2017 Secondary SHILOH Leidy [facility] [id number] Repository Number: 5 [facility] [id number] [place] Date:2017-08-08 [phone]: [phone] [id number] [phone] ()Tel: Name:[facility] [place] [address] [place] [address] () [address]YB:
[2018-09-18 10:44] VITALS: BP 112/67; PULSE 69; RESP 14; TEMP 36.8; O2SAT 98; BMI 25.7
[2018-09-18 10:53] LABS: Internal QC Validated? YES +Cl - CLEAR BKGD; Pregnancy, Urine Negative Negative
--- NOTE | 2018-09-18 12:00 | FALS_PTH ---
PATIENT: SHILOH IRAHETA LOC: [facility] U#:[id number] AGE/SX: 28/F ROOM: RE09/18/[address]: Dr. Marciano Cabrera MD : 1990 BED: DIS: 09/18/2018 SPEC #: [id number] RECD: 09/21/18 08:17 STATUS: ARLEN CRISTINA #: [id number] JOHNNY: 09/18/18 12:[address]: Marciano Cabrera DEPT: SURGICAL PATHOLOGY RECD BY: Odell Avilez ENTERED: 09/21/18 10:08 SP TYPE: FALL TUBES OTHR DR: Dr. Forrest Quiñonez MD Tissues: Fallopian tube Procedures: Surgery Specimen Level IV HEADER OPERATION: Laparoscopic salpingectomy PRE-OP DIAGNOSIS: Desire for permanent sterilization TISSUE SUBMITTED: Bilateral fallopian tubes, tie on left tube MICROSCOPIC DIAGNOSIS Bilateral fallopian tubes, salpingectomy: Bilateral fallopian tubes including fimbrial ends with mild acute and chronic inflammation. SJ:nigel 09/22/18 MICROSCOPIC DESCRIPTION Slides are reviewed. GROSS DESCRIPTION Received is one container labeled with the patient's name and designated bilateral fallopian tubes. The specimen consists of bilateral fallopian tubes including fimbrial ends with the left identified with a suture. The right fallopian tube measures 7 cm in length and up to 0.9 cm in diameter. The left fallopian tube with suture measures 6 cm in length and 0.5 cm in diameter. Sections reveal unremarkable cut surfaces. Record Press Supervisor sections are submitted in two cassettes as follows: 1 - right fallopian tube, 2 - left fallopian tube. / FARZANA:nigel 09/21/18 TC:2 CPT: 60866 x2
--- NOTE | 2018-09-18 12:18 | DCINST_ITS ---
You will use the following diet at home:: No restrictions Your food should be the consistency of: Regular Discharge Activity: Return to Normal Activity, May Drive, May not drive while taking narcotic pain medications., May Shower Return to work on:: 08/28/18 May shower in (days): 0 May resume sexual activity in: 2 weeks Call your doctor if your incision/area has: Continuous Slow Oozing, Sudden Increased Bleeding, Increased Pain/ Swelling, Increased Redness, Foul Smelling Discharge, Swelling at the incision site Call your doctor if you observe: Fever of 101 or Higher, Inability to urinate, Inability to have a bowel movement, Using more than one pad per hour, Shortness of breath, Chest pain, Calf discomfort, Uncontrolled pain Remove Dressing in (days):: 2 Cleanse incision/area with: Soap & Water Allergies/Adverse Reactions: Allergies amoxicillin trihydrate [From Augmentin] Allergy (Verified 09/11/18 10:18) Rash clarithromycin [From Biaxin] Allergy (Verified 09/11/18 10:18) Rash potassium clavulanate [From Augmentin] Allergy (Verified 09/11/18 10:18) Rash Medications to take at Discharge Vilazodone Hydrochloride [Viibryd] 40 mg PO DAILY 05/13/16 Ibuprofen 600 mg PO 4X/DAY #30 tab 09/18/18 Oxycodone [Oxyir] 5 mg PO Q4H PRN PRN 7 Days #20 tab 09/18/18 The following prescriptions were given: Oxycodone [Oxyir] 5 mg PO Q4H PRN PRN 7 Days #20 tab PRN Reason: Severe Pain (6-10/) Ibuprofen 600 mg PO 4X/DAY #30 tab Primary Care Physician: Elan Quiñonez MD [Primary Care Provider] - Test Results: Test results from this visit will be discussed in further detail at your follow- up appointment, if applicable. Please Follow Up With: Marciano Cabrera MD When: one week Proposed Discharge Date: 09/18/18
--- NOTE | 2018-09-18 12:36 | OP.PCM_ITS ---
Problem List (1) Encounter for sterilization Status: Acute Report of Operation Date of Procedure: 09/18/18 Pre-Operative Diagnosis: Requests permanent sterilization Post-Operative Diagnosis: Same Surgery/Procedure Performed:: Laparoscopic bilateral salpingectomy Description of Surgical Findings:: Normal appearing uterus, ovaries, and fallopian tubes. Normal appearing liver and stomach. securities settlement processor: Taryn Quiroga securities settlement processor: Julia Schneider Type of Anesthesia:: General Anesthesiologist: Matt Chavarria Special Medications: none Specimen's removed: right and left fallopian tubes Drains: none Estimated Blood Loss (mL): 10cc Fluids Replaced: 700cc Description of Procedure: Mabel was taken to the OR with IV running. She was given IV antibiotics for surgical prophylaxis. SCDs were in place and operational throughout the case. General anesthesia was introduced without complication. She was then prepped and draped in the dorsal lithotomy position. A payton catheter was used to drain the bladder. A uterine manipulator was placed. Attention was then directed to the abdomen. A 5mm vertical incision was made in the lower base of the umbilicus. The underlying subcutaneous tissue was dissected down to the level of fascia using a Maria Guadalupe clamp. The abdominal wall was elevated and a Veress needle was placed through the umbilical defect into the abdomen. The abdomen was then inflated with CO2 gas to 15 Torr pressure. The Veress needle was removed and replaced with a 5mm laparoscopic trocar and sleeve. The trocar was removed and replaced with the laparoscope. A survey of the abdomen and pelvis was performed with findings as above. A second 5mm trocar was placed on the left side of the abdomen at the level of the umbilicus lateral to the inferior epigastric vessels. A small laparoscopic alligator grasper was placed in the midline of the abdomen between the pubic symphysis and the umbilicus. Attention was first directed to the left fallopian tube which was grasped and elevated. The Ligasure device was then used to cauterize and cut the mesosalpinx from the fimbriated end of the tube to the cornua of the uterus. The tube was then amputated at the cornua and removed through the laparoscopic port. The right fallopian tube was removed in a similar fashion. Hemostasis was excellent. The gas was evacuated and the ports were removed along with the alligator grasper. The skin incisions were closed with 4-0 Monocryl suture. The uterine manipulator was removed from the cervix. Instrument, sponge, and needle counts were correct. She was reversed from anesthesia and taken to the recovery room in stable condition. Grafts/Implants Used: none - Complications none - Admit VTE Documentation VTE Present on Admission: No VTE Mechan Device Prophylaxis: SCD's VTE Pharm Prophylaxis ordered?: No
[2018-09-18] MEDS: Bupivacaine Mpf 0.5% 30 ML VIAL (13:15)
[2018-09-18 13:28] VITALS: BP 110/59; BP 112/67; PULSE 102; RESP 16; TEMP 36.7; O2SAT 97
[2018-09-18 13:45] VITALS: BP 112/63; BP 112/67; PULSE 82; RESP 16; O2SAT 95
[2018-09-18 14:00] VITALS: BP 110/57; BP 112/67; PULSE 100; RESP 16; O2SAT 98
[2018-09-18 14:15] VITALS: BP 111/68; BP 112/67; PULSE 80; RESP 16; TEMP 36.4; O2SAT 96
[2018-09-18 15:10] VITALS: BP 112/67; BP 116/68; PULSE 72; RESP 18; TEMP 37; O2SAT 96
== END 2018-09-18 15:35 | disposition home or self-care (01) ==
LOC: SDC 10:16 → AC 10:16
PROVIDERS: Family Provider Family Medicine; PCP Family Medicine; Referring Provider Obstetrics & Gynecology; Visit Provider Obstetrics & Gynecology
PROC: (CPT 58661; principal; 2018-09-18 11:45)
DX: Z30.2 Encounter for sterilization (principal); F32.9 Major depressive disorder, single episode, unspecified; F41.9 Anxiety disorder, unspecified; Z79.899 Other long term (current) drug therapy; Z87.01 Personal history of pneumonia (recurrent); Z87.440 Personal history of urinary (tract) infections
CPT/HCPCS: 00840; 58661; 36415; 81025; 84703; 85027; 85610; 85730; 86850; 86900; 88302; 88305; J7120; J2405

== ENCOUNTER → 2019-02-09 11:21 | Outpatient (CLI) | payer MEDICAID, SELFPAY ==
[2019-02-09 13:56] LABS: Erythrocyte Sedimentation Rate 12 mm/hr (0-20)
[2019-02-09 13:59] LABS: Hematocrit 37.9 % (37-47); Hemoglobin 11.7 g/dl (12.0-15.0); Mean Corp Hgb Conc 30.9 g/gl (32-36); Mean Corpuscular Hgb 26.5 pg (27.0-32.0); Mean Corpuscular Volume 85.9 fL (81-99); Mean Platelet Vol. 10.9 fl (6.2-12.0); Platelet Count 298 K/mm3 (150-450); RBC Distribution Width CV 15.5 % (11.6-14.6); RBC Distribution Width SD 48.4 fl (35.1-43.9); Red Blood Count 4.41 M/mm3 (4.2-5.4); White Blood Count 6.8 K/mm3 (4.4-11.0)
[2019-02-09 14:00] LABS: Scan Indicated on CBC? Y/N NO
[2019-02-09 14:19] LABS: Vitamin B12 850 pg/mL (211-911); Vitamin D,25 Hydroxy 23.2 ng/mL (29.95-100.01)
[2019-02-09 14:25] LABS: Anion Gap 8 (5-15); BUN 13 mg/dL (7-18); Chloride 104 mmol/L (98-107); Creatinine, Serum 0.76 mg/dL (0.55-1.02); EST Glomerular Filtration Rate 94 mL/min (>60); Est Glom Filt Rate - Afr Amer 114 mL/min (>60); Glucose 79 mg/dL (74-106); Potassium 4.2 mmol/L (3.5-5.1); Sodium Level 140 mmol/L (136-145); Thyroid Stim Hormone (TSH) 3.22 uIU/mL (0.358-3.74)
== END ==
PROVIDERS: Family Provider Family Medicine; PCP Family Medicine; Referring Provider Family Medicine; Visit Provider Family Medicine
DX: L65.9 Nonscarring hair loss, unspecified (principal)
CPT/HCPCS: 36415; 80048; 82306; 82607; 84443; 85027; 85652

== ENCOUNTER → 2019-04-05 11:40 | Outpatient (CLI) | payer MEDICAID, SELFPAY ==
[2019-04-05 14:03] LABS: Absolute Lymphocyte Count 1.73 X10^3/ul (0.83-4.51); Absolute Neutrophil Count 5.4 X10^3/uL (2.0-7.7); Basophil# 0.02 X10^3/uL; Basophil% 0.3 % (0-1); Eosinophil# 0.11 X10^3/uL; Eosinophils% 1.4 % (0-5); Hematocrit 38.9 % (37-47); Hemoglobin 12.4 g/dl (12.0-15.0); Lymphocyte # 1.73 X10^3/ul (4.0); Mean Corp Hgb Conc 31.9 g/gl (32-36); Mean Corpuscular Hgb 26.8 pg (27.0-32.0); Mean Corpuscular Volume 84.2 fL (81-99); Mean Platelet Vol. 10.4 fl (6.2-12.0); Monocyte# 0.65 X10^3/uL; Monocyte% 8.2 % (0-10); Neutrophil # 5.36 X10^3/uL (2.7-7.7); POSITIVE COUNT NO; POSITIVE DIFFERENTIAL NO; POSITIVE MORPHOLOGY NO; Platelet Count 322 K/mm3 (150-450); RBC Distribution Width CV 16.8 % (11.6-14.6); RBC Distribution Width SD 50.9 fl (35.1-43.9); Red Blood Count 4.62 M/mm3 (4.2-5.4); White Blood Count 7.9 K/mm3 (4.4-11.0)
[2019-04-05 14:09] LABS: ALB/GLOB Ratio 0.9 RATIO (0.9-2.4); AST(SGOT) 9 U/L (15-37); Alanine Aminotransfer ALT/SGPT 19 U/L (13-56); Albumin, Serum 3.6 g/dL (3.2-5.0); Alkaline Phosphatase 64 U/L (45-117); Anion Gap 7 (5-15); BUN 8 mg/dL (7-18); BUN/Creat Ratio 10.6 RATIO (10-20); Calcium,Total 8.6 mg/dL (8.5-10.1); Chloride 107 mmol/L (98-107); Creatinine, Serum 0.75 mg/dL (0.55-1.02); EST Glomerular Filtration Rate 96 mL/min (>60); Est Glom Filt Rate - Afr Amer 116 mL/min (>60); Globulin 3.8 g/dL (2.2-4.2); Glucose 71 mg/dL (74-106); Potassium 3.9 mmol/L (3.5-5.1); Protein, Total 7.4 g/dL (6.4-8.2); Sodium Level 141 mmol/L (136-145)
== END ==
PROVIDERS: Family Provider Family Medicine; PCP Family Medicine; Visit Provider Family Medicine
DX: F32.9 Major depressive disorder, single episode, unspecified (principal)
CPT/HCPCS: 36415; 80053; 82306; 85025

== ENCOUNTER → 2019-05-03 16:50 | Outpatient (CLI) | payer MEDICAID, SELFPAY | LOC: LABSPEC 05-04 14:10 → MFPLAB 05-04 14:12 | PROVIDERS: Family Provider Family Medicine; PCP Family Medicine; Referring Provider Family Medicine; Visit Provider Family Medicine | DX: R30.0 Dysuria (principal) | CPT/HCPCS: 87077; 87086; 87088 ==